=== PATIENT | male | born 1975 | race Caucasian/White ===

== ENCOUNTER 2016-04-09 11:46 | Emergency (ER) | payer OTHER ==
--- NOTE | 2016-04-09 12:08 | ER Document Report ---
ED Medical Screen (RME) - General Stated Complaint: TESTICULAR PAIN Notes: 40 yo male c/o left testicular pain x 2 days. Pain radiates into left groin and left lower abdomen. Mild pain with urination. No fever. No trauma. + swelling to left scrotum per patient.
[2016-04-09] MEDS ORDERED: OXYCODONE-ACETAMINOPHEN 5-325 MG TABLET PO ONE (12:10)
--- NOTE | 2016-04-09 12:14 | ER Document Report ---
[id number] PAIN Notes: The patient is a 40-year-old male, past medical history COPD, kidney stones, presents with 45 minutes of left testicular pain. He is having intermittent pain yesterday that resolved after a shower earlier today. He began to have severe left testicular pain that would radiate into his groin region. His pain is different than his prior kidney stone pain. He denies dysuria, fevers, flank pain, nausea, vomiting, penile discharge or rash. TRAVEL OUTSIDE OF THE [place] IN LAST 30 DAYS: No - Related Data Allergies/Adverse Reactions: No Known Allergies Allergy (Verified 04/09/16 12:04) Past Medical History - General Information source: Patient - Social History Smoking Status: Current Every Day Smoker Chew tobacco use (# tins/day): No Frequency of alcohol use: None Drug Abuse: None Family History: Reviewed & Not Pertinent Patient has suicidal ideation: No Patient has homicidal ideation: No Review of Systems - Review of Systems Notes: REVIEW OF SYSTEMS: CONSTITUTIONAL: -fevers, -chills EENT: -eye pain, -difficulty swallowing, -nasal congestion CARDIOVASCULAR:-chest pain, -syncope. RESPIRATORY: -cough, -SOB GASTROINTESTINAL: -abdominal pain, - nausea, -vomiting, -diarrhea GENITOURINARY: -dysuria, -hematuria, +testicular pain MUSCULOSKELETAL: -back pain, -neck pain SKIN: -rash or skin lesions. HEMATOLOGIC: -easy bruising or bleeding. LYMPHATIC: -swollen, enlarged glands. NEUROLOGICAL: -altered mental status or loss of consciousness, -headache, - neurologic symptoms PSYCHIATRIC: -anxiety, -depression. ALL OTHER SYSTEMS REVIEWED AND NEGATIVE. Physical Exam - Vital signs Vitals: Temp Pulse Resp BP Pulse Ox 98.6 F 91 24 H 170/110 H 96 04/09/16 12:04 04/09/16 12:04 04/09/16 12:04 04/09/16 12:04 04/09/16 12:04 - Notes Notes: PHYSICAL EXAMINATION: GENERAL: In moderate distress. HEAD: Atraumatic, normocephalic. EYES: Pupils equal round and reactive to light, extraocular movements intact, sclera anicteric, conjunctiva are normal. ENT: nares patent, oropharynx clear without exudates. Moist mucous membranes. NECK: Normal range of motion, supple without lymphadenopathy LUNGS: Breath sounds clear to auscultation bilaterally and equal. No wheezes rales or rhonchi. HEART: Regular rate and rhythm without murmurs ABDOMEN: Soft, nontender, normoactive bowel sounds. No guarding, no rebound. No masses appreciated. Left testicular tenderness. Normal testicular lie. No hernia. EXTREMITIES: Normal range of motion, no pitting or edema. No cyanosis. NEUROLOGICAL: Cranial nerves grossly intact. Normal speech, normal gait. Normal sensory, motor, and reflex exams. PSYCH: Normal mood, normal affect. SKIN: Warm, Dry, normal turgor, no rashes or lesions noted. Course - Re-evaluation Re-evalutation: High concern for a testicular torsion. Will obtain ultrasound and provide pain control. She sound does not show evidence of testicular torsion or hernia. He is no longer having pain. With a small amount of blood in the urine and radiation of this pain into his left flank, will treat him presumptively for kidney stones. He has never required any type of surgical intervention for stones. Will hold off on CT and ultrasound at this time and have him follow-up with his urologist. Given strict return precautions and patient and are comfortable with plan. - Vital Signs Vital signs: Temp Pulse Resp BP Pulse Ox 98.6 F 82 17 142/102 H 98 04/09/16 12:04 04/09/16 15:22 04/09/16 15:22 04/09/16 15:22 04/09/16 15:22 - Laboratory Laboratory results interpreted by me: 04/09/16 13:15 Urine Blood SMALL H - Diagnostic Test Radiology reviewed: Image reviewed, Reports reviewed Radiology results interpreted by me: US: No evidence of torsion or hernia. Discharge - Discharge Clinical Impression: Left groin pain Condition: Good Disposition: HOME, SELF-CARE Additional Instructions: KIDNEY STONE: You are passing or have passed a kidney stone. These stones are usually due to increased calcium or uric acid concentrations in your urine. Stones within the kidney itself are not painful. The pain occurs as the stone leaves the kidney to pass down the long tube, called the ureter, leading to the bladder. If the stone is small, it will usually pass by itself. Most patients can pass the stone at home. You will usually receive medications for pain, nausea or vomiting, and sometimes a medication to assist in passing the kidney stone. However, if the pain is very severe or if vomiting prevents you from taking oral pain medications, you may need to return for further treatment. Drink three or four quarts of fluids per day. You will be given pain medication (if needed) and urine strainers. Strain all your urine to see if the stone passes. If your doctor has asked you to bring the stone in for analysis, return with the stone once it has passed. Return if pain or vomiting become severe, if you develop a high fever, if you are unable to pass your urine, or if other unusual symptoms occur. ORAL NARCOTIC MEDICATION: You have been given a prescription for pain control. This medication is a narcotic. It's best taken with food, as nausea can result if taken on an empty stomach. Don't operate machinery or drive within six hours of taking this medication. Do not combine this medicine with alcohol, or with any medication which can cause sedation (such as cold tablets or sleeping pills) unless you get permission from the physician. Narcotics tend to cause constipation. If possible, drink plenty of fluids and eat a diet high in fiber and fruits. Please be aware that prescription narcotics also have the potential for abuse. People become addicted to these medications because of the general sense of wellbeing that they induce. This feeling along with a significant reduction in tension, anxiety, and aggression provides a stimulating seductive quality to these drugs. Once your pain is under control, we encourage you to discard your unused narcotics. FOLLOW-UP CARE: If you have been referred to a physician for follow-up care, call the physician s office for an appointment as you were instructed or within the next two days. If you experience worsening or a significant change in your symptoms, notify the physician immediately or return to the Emergency Department at any time for re-evaluation. Prescriptions: Oxycodone HCl/Acetaminophen [Percocet 5-325 mg Tablet] 1 - 2 tab PO Q4H PRN #15 tablet PRN Reason: Referrals: MANUELITO BEDOYA MD [Primary Care Provider] - Follow up as needed FLACA GILBERT MD [ACTIVE STAFF] - Follow up as needed
[2016-04-09 14:02] LABS: APPEARANCE,URINE CLEAR; BILIRUBIN,URINE NEGATIVE (NEGATIVE); GLUCOSE, URINE NEGATIVE (NEGATIVE); KETONES,URINE NEGATIVE (NEGATIVE); LEUKOCYTE ESTERASE,URINE NEGATIVE (NEGATIVE); NITRITE,URINE NEGATIVE (NEGATIVE); PROTEIN,URINE NEGATIVE (NEGATIVE); URINE SPECIFIC GRAVITY 1.016; UROBILINOGEN,URINE NEGATIVE mg/dL (<2.0)
[2016-04-09 15:24] VITALS: BP 142/102
== END 2016-04-09 15:22 | disposition home or self-care (01) ==
LOC: ER 11:46
DX: R10.30 Lower abdominal pain, unspecified (principal); N50.812 Left testicular pain; Z87.442 Personal history of urinary calculi; F17.200 Nicotine dependence, unspecified, uncomplicated; R31.9 Hematuria, unspecified
CPT/HCPCS: 76870; 81001; 93976; 99284

== ENCOUNTER 2016-09-25 15:09 | Inpatient (IN) | payer OTHER ==
[2016-09-25] MEDS ORDERED: ASPIRIN 81 MG TABLET, CHEWABLE PO ONE (15:12)
[2016-09-25] MEDS ORDERED: ONDANSETRON HCL INJ/PF 4 MG/2 ML SDV IV ONE ×2 (15:35→17:50)
[2016-09-25 15:36] LABS: ABSOLUTE EOSINOPHILS # (AUTO) 0.5 10^3/uL (0.0-0.6); ABSOLUTE LYMPHOCYTES (AUTO) 5.7 10^3/uL (0.5-4.7); ABSOLUTE MONOCYTES (AUTO) 1.2 10^3/uL (0.1-1.4); ABSOLUTE NEUT (AUTO) 12.1 10^3/uL (1.7-8.2); BASOPHILS % (AUTO) 0.2 % (0-2); EOSINOPHILS % (AUTO) 2.4 % (0-6); HEMATOCRIT 47.9 % (37.9-51.0); HEMOGLOBIN 16.2 g/dL (13.5-17.0); HGB HCT DIFFERENCE 0.7; LYMPHOCYTES % (AUTO) 29.1 % (13-45); MEAN CORPUSCULAR HEMOGLOBIN 29.9 pg (27.0-33.4); MEAN CORPUSCULAR HGB CONC 33.9 g/dL (32.0-36.0); MEAN CORPUSCULAR VOLUME 88 fl (80-97); MONOCYTES % (AUTO) 6.2 % (3-13); RED BLOOD COUNT 5.43 10^6/uL (4.35-5.55); RED CELL DISTRIBUTION WIDTH 15.5 % (11.5-14.0); SEGMENTED NEUTROPHILS % (AUTO) 62.1 % (42-78); WHITE BLOOD COUNT 19.5 10^3/uL (4.0-10.5)
[2016-09-25 15:52] LABS: ALANINE AMINOTRANSFERASE 34 U/L (21-72); ALBUMIN 4.6 g/dL (3.5-5.0); ALKALINE PHOSPHATASE 80 U/L (38-126); ANION GAP 17 (5-19); ASPARTATE AMINO TRANSFERASE 18 U/L (17-59); BILIRUBIN,DIRECT 0.3 mg/dL (0.0-0.4); BILIRUBIN,TOTAL 0.7 mg/dL (0.2-1.3); BLOOD UREA NITROGEN 10 mg/dL (7-20); CALCIUM 9.9 mg/dL (8.4-10.2); CARBON DIOXIDE 22 mmol/L (22-30); CHLORIDE 102 mmol/L (98-107); CREATINE KINASE 119 U/L (55-170); CREATININE RESULT 0.89 mg/dL (0.52-1.25); GLUCOSE 119 mg/dL (75-110); POTASSIUM 3.4 mmol/L (3.6-5.0); SODIUM 140.5 mmol/L (137-145); TOTAL PROTEIN 8.1 g/dL (6.3-8.2)
[2016-09-25 16:02] LABS: CREATINE KINASE MB 0.83 ng/mL (<4.55)
--- NOTE | 2016-09-25 16:03 | ER Document Report ---
ED General - General Chief Complaint: Chest Pressure Stated Complaint: CHEST PAIN Time Seen by Provider: 09/25/16 15:24 Notes: Patient said he began feeling ill yesterday morning and he experienced lightheadedness and dizziness. He also had some cramping and tightness in his chest. Also had some headache last night. 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 About 1:30 PM, he began to have profuse sweating, became nauseated and began vomiting and continued to have those symptoms on the way here. He was experiencing severe spinning and vomiting and headache. He has also continued to have the chest tightness off and on. Denies shortness of breath or difficulty breathing. Has not been sick recently. No fevers. Denies abdominal pains. At this time, patient still has severe dizziness and spinning sensation and it is worsened whenever he opens his eyes. Patient has been going to the [place] [facility] and was noted to have a conduction problem and his heart tenderness had a stress test followed by wearing a Holter monitor. His EKG here today has a right bundle branch block and that is probably what they have been working up at the [place]. Patient has no history of any heart disease. He does have hypertension, diet-controlled diabetes, and reactive airway disease. TRAVEL OUTSIDE OF THE [place] IN LAST 30 DAYS: No - Related Data Allergies/Adverse Reactions: No Known Allergies Allergy (Verified 09/25/16 15:42) Past Medical History - Social History Smoking Status: Current Every Day Smoker Frequency of alcohol use: None Drug Abuse: None Family History: Reviewed & Not Pertinent - Past Medical History Cardiac Medical History: Reports: Hx Hypertension Pulmonary Medical History: Reports: Hx COPD Neurological Medical History: Denies: Hx Cerebrovascular Accident Endocrine Medical History: Reports: Hx Diabetes Mellitus Type 2 - Diet controlled GI Medical History: Reports: Hx Hiatal Hernia Past Surgical History: Reports: Hx Abdominal Surgery - hernia, Hx Cholecystectomy - Immunizations Hx Diphtheria, Pertussis, Tetanus Vaccination: Yes Review of Systems - Review of Systems Notes: REVIEW OF SYSTEMS: CONSTITUTIONAL : Denies fever. Profuse continuous heavy sweating. EENT: Denies ear, nose or mouth or throat pain or other symptoms. Complains that when he opens his eyes, it exacerbates the spinning sensation. CARDIOVASCULAR: See HPI regarding chest tightness and cramping RESPIRATORY: Denies cough, chest congestion, or shortness of breath. GASTROINTESTINAL: Denies abdominal pain but has had nausea, vomiting, not diarrhea. GENITOURINARY: Denies difficulty or painful urinating, urinary frequency, blood in urine. MUSCULOSKELETAL: Denies back or neck pain. Denies joint pain or swelling. SKIN: Denies rash or skin lesions. NEUROLOGICAL: Denies LOC, although he says he may have been out for a couple of seconds. Denies altered mental status. Has a generalized, global headache. Denies sensory loss or motor deficits. ALL OTHER SYSTEMS REVIEWED AND NEGATIVE. Physical Exam - Vital signs Vitals: Pulse Ox 99 09/25/16 15:25 Interpretation: Normal - Notes Notes: PHYSICAL EXAMINATION: GENERAL: Anxious, breathing heavily, profusely diaphoretic, especially of his head. HEAD: Atraumatic, normocephalic. EYES: Pupils equal round and reactive to light, extraocular movements intact, although I get the sense that I may be seeing a slight amount of nystagmus with gaze to the right. ENT: oropharynx clear without exudates. Moist mucous membranes. NECK: Normal range of motion, supple. No carotid bruits heard. LUNGS: Breath sounds clear and equal bilaterally. HEART: Regular rate and rhythm without murmurs. ABDOMEN: Soft, nontender. No guarding or rebound. BACK: No tenderness throughout entire back. EXTREMITIES: Normal range of motion without pain. NEUROLOGICAL: Normal speech, gait not tested. Normal sensory, motor, and reflex exams. Awake, alert, and oriented x3. PSYCH: Normal mood, normal affect. SKIN: Warm, dry, no rashes. Course - Re-evaluation Re-evalutation: 09/25/16 17:52 Patient still complaining of pretty severe nausea, although he is no longer vomiting and is not diaphoretic at this time. Spoke with hospitalist, Dr. Maddox, and patient will be admitted to telemetry for observation. - Vital Signs Vital signs: Temp Pulse Resp BP Pulse Ox 98.0 F 18 112/55 L 97 09/25/16 15:32 09/25/16 17:01 09/25/16 17:00 09/25/16 17:01 - Laboratory Result Diagrams: 09/25/16 15:23 09/25/16 15:23 Laboratory results interpreted by me: 09/25/16 09/25/16 15:23 15:23 WBC 19.5 H RDW 15.5 H Absolute Neutrophils 12.1 H Absolute Lymphocytes 5.7 H Potassium 3.4 L Glucose 119 H 09/25/16 17:52 WBC of 19,500 noted. Patient says that he has long been known to have an elevated white cell count, usually between 12,000 and 16,000. - Diagnostic Test Radiology reviewed: Image reviewed, Reports reviewed - CT scan of the brain was normal per radiology Radiology results interpreted by me: 09/25/16 17:51 Chest x-ray is normal. - EKG Interpretation by Me EKG shows normal: Sinus rhythm Rate: Normal Rhythm: NSR [place]/QRS: RBBB, LAHB/LAFB Discharge - Discharge Clinical Impression: Acute onset of severe vertigo Vomiting Qualifiers: Vomiting type: unspecified Vomiting Intractability: non-intractable Nausea presence: with nausea Qualified Code(s): R11.2 - Nausea with vomiting, unspecified Admitting Provider: Hospitalist Unit Admitted: Telemetry Referrals: REENA MADERA MD [Primary Care Provider] - Follow up as needed
[2016-09-25 16:05] LABS: TROPONIN I < 0.012 ng/mL
--- NOTE | 2016-09-25 16:16 | RADIOLOGY REPORT (SQ) ---
EXAM DESCRIPTION: CHEST SINGLE VIEW COMPLETED DATE/TIME: 09/25/2016 3:39 pm REASON FOR STUDY: bed 9 cp COMPARISON: None. EXAM PARAMETERS: NUMBER OF VIEWS: One view. TECHNIQUE: Single frontal radiographic view of the chest acquired. RADIATION DOSE: NA LIMITATIONS: None. FINDINGS: LUNGS AND PLEURA: No opacities, masses or pneumothorax. No pleural effusion. MEDIASTINUM AND HILAR STRUCTURES: No masses. Contour normal. HEART AND VASCULAR STRUCTURES: Heart normal in size. Normal vasculature. BONES: No acute findings. HARDWARE: None in the chest. OTHER: No other significant finding. IMPRESSION: NO ACUTE RADIOGRAPHIC FINDING IN THE CHEST. TECHNICAL DOCUMENTATION: JOB ID: [id number]
--- NOTE | 2016-09-25 16:40 | RADIOLOGY REPORT (SQ) ---
EXAM DESCRIPTION: CT HEAD WITHOUT COMPLETED DATE/TIME: 09/25/2016 4:22 pm REASON FOR STUDY: Extreme dizziness, headache, diaphoresis COMPARISON: None. TECHNIQUE: Axial images acquired through the brain without intravenous contrast. Images reviewed wi th bone, brain and subdural windows. Images stored on PACS. All CT scanners at this facility use dose modulation, iterative reconstruction, and/or weight based d osing when appropriate to reduce radiation dose to as low as reasonably achievable (ALARA). [facility]: Dose Right [facility]: CareDose [facility]: Dose Right [facility]: Teradose 4D [facility]: Smart Voxel ([employer]) RADIATION DOSE: Up-to-date CT equipment and radiation dose reduction techniques were employed. CTDIv ol: 64.6 mGy. DLP: 1163 mGy-cm. mGy. LIMITATIONS: None. FINDINGS: VENTRICLES: Normal size and contour. CEREBRUM: No masses. No hemorrhage. No midline shift. Normal oquendo/white matter differentiation. N o evidence for acute infarction. CEREBELLUM: No masses. No hemorrhage. No alteration of density. No evidence for acute infarction. EXTRAAXIAL SPACES: No fluid collections. No masses. ORBITS AND GLOBE: No intra- or extraconal masses. Normal contour of globe without masses. CALVARIUM: No fracture. PARANASAL SINUSES: Right maxillary sinus mucus or serous retention cyst. Paranasal sinuses, mastoid air cells, middle ear cavities are otherwise unremarkable. SOFT TISSUES: No mass or hematoma. OTHER: No other significant finding. IMPRESSION: NORMAL BRAIN CT WITHOUT CONTRAST. TECHNICAL DOCUMENTATION: JOB ID: [id number] Quality ID # [id number]: Final reports with documentation of one or more dose reduction techniques (e.g., Au tomated exposure control, adjustment of the mA and/or kV according to patient size, use of iterative reconstruction technique) 2010 [employer]- All Rights Reserved
--- NOTE | 2016-09-25 18:46 | EKG REPORT ---
SEVERITY:- ABNORMAL ECG - SINUS RHYTHM RBBB AND LAFB : Confirmed by: Perry Onofre 25-Sep-2016 18:44:39
[2016-09-25 18:47] LABS: APPEARANCE,URINE CLOUDY; BILIRUBIN,URINE NEGATIVE (NEGATIVE); GLUCOSE, URINE NEGATIVE (NEGATIVE); KETONES,URINE NEGATIVE (NEGATIVE); PROTEIN,URINE NEGATIVE (NEGATIVE); URINE BARBITURATES SCREEN NEGATIVE; URINE METHADONE SCREEN NEGATIVE; URINE OPIATES LOW NEGATIVE; URINE PHENCYCLIDINE SCREEN NEGATIVE; URINE SPECIFIC GRAVITY 1.014; UROBILINOGEN,URINE NEGATIVE mg/dL (<2.0)
[2016-09-25 18:48] LABS: AMORPHOUS SEDIMENT,URINE TRACE /HPF; LEUKOCYTE ESTERASE,URINE NEGATIVE (NEGATIVE); NITRITE,URINE NEGATIVE (NEGATIVE)
--- NOTE | 2016-09-25 19:10 | RADIOLOGY REPORT (SQ) ---
EXAM DESCRIPTION: CTA NECK COMPLETED DATE/TIME: 09/25/2016 6:58 pm REASON FOR STUDY: Acute vertigo, Headache COMPARISON: None. TECHNIQUE: Axial dynamic scanning technique with dynamic contrast enhancement through the extra-aircraft inspector nial carotid and vertebral arteries. Multiplanar reconstruction. 3-D MIPS and Volume-rendered imag es acquired at the workstation and saved to PACS. Images are reviewed in soft tissue, bone, lung w indows. All CT scanners at this facility use dose modulation, iterative reconstruction, and/or weight based d osing when appropriate to reduce radiation dose to as low as reasonably achievable (ALARA). [facility]: Dose Right [facility]: CareDose [facility]: Dose Right [facility]: Teradose 4D [facility]: Rowl CONTRAST TYPE AND DOSE: 70 mL Isovue 370- low osmolar. RENAL FUNCTION: BUN 10 creatinine 0.89. LIMITATIONS: None. FINDINGS: AORTIC ARCH: Normal three-vessel origin. Bilateral subclavian arteries are patent. No d issection. RIGHT CAROTIDS: Patent common, internal and external carotid arteries without suggestion of significa nt stenosis or irregular plaque. No dissection. RIGHT VERTEBRAL: Patent. No dissection. LEFT CAROTIDS: Patent common, internal and external carotid arteries without suggestion of significan t stenosis or irregular plaque. No dissection. LEFT VERTEBRAL: Patent. No dissection. OTHER: 1 cm nodule in the right parotid gland. OTHER: 3-D reconstructions confirm findings. IMPRESSION: 1. NORMAL CTA OF THE EXTRA-CRANIAL CAROTID AND VERTEBRAL ARTERIES. 2. 1 CM NODULE IN THE RIGHT PAROTID GLAND. THIS MAY BE A LYMPH NODE OR A PAROTID GLAND ADENOMA. COMMENT: Quality ID #[id number]: Measurements of distal internal carotid diameter were used as the denomina tor for stenosis measurement. TECHNICAL DOCUMENTATION: JOB ID: [id number] Quality ID # [id number]: Final reports with documentation of one or more dose reduction techniques (e.g., Au tomated exposure control, adjustment of the mA and/or kV according to patient size, use of iterative reconstruction technique) 2010 [employer]- All Rights Reserved
[2016-09-25] MEDS ORDERED: (PENDING PHARMACY ID) (Albuterol Sulfate [Proair Respiclick] 2 PUFF) IH PRN (19:48)
--- NOTE | 2016-09-25 19:48 | HISTORY AND PHYSICAL E ---
History and Physical NAME: RACHEL LOTT : 1975 AGE: 41Y ADMITTED: 09/25/2016 ROOM: ED09 PRIMARY CARE PROVIDER: AUGUSTO. CODE STATUS: FULL CODE. CHIEF COMPLAINT: Vertigo and vomiting. HISTORY OF PRESENT ILLNESS: The patient is a 41-year-old male with a past medical history of hypertension and chronic leukocytosis with a white count around 15,000. The patient presented to the emergency department with a chief complaint of vertigo and subsequent vomiting. According to the patient, abruptly at 1 o'clock this afternoon, he was in an air conditioned room when he became diaphoretic, extremely weak and felt like he was spinning, then felt like the room was spinning as well. The patient states that he proceeded to vomit and the symptoms did persist. The patient developed a headache as well and felt so overwhelmed he came to the emergency department for evaluation. According to the patient, he has had some fullness in his left ear and a "rattling" sensation in his right ear as well. The patient does admit to some reactive airway disease and states that he is always taking an antihistamine and has had no symptoms of this. However, the patient does admit to intermittent jaw pain and dull ache of his face. Upon presentation to the emergency department the patient was found to have a white count of 19.5 which is elevated according to the patient, potassium of 3.4, a plain CT of the head was unremarkable, EKG revealed a right bundle branch block, and the patient was referred to the hospitalist for admission and management. PAST MEDICAL HISTORY: Remarkable for: 1. Reactive airway disease. 2. Hypertension. 3. Obesity. 4. Tobacco dependency. 5. A remote history of alcoholism. The patient has been sober for 6 years. 6. A remote history of heavy drug use. The patient has been sober for 15 years. PAST SURGICAL HISTORY: Includes: 1. Ventral wall hernia repair. 2. Cholecystectomy. ALLERGIES: No known drug allergies. HOME MEDICATIONS: Include: 1. Symbicort 2 puffs inhalation q.12 h. 2. Albuterol nebulizers q.6 h. p.r.n. 3. Verapamil 180 mg p.o. daily. 4. Singulair 10 mg p.o. q. hour of sleep. 5. Testosterone injections weekly. 6. Viagra 100 mg p.o. p.r.n. SOCIAL HISTORY: The patient currently resides at home with his Nikki, who is also his surrogate decision maker. She can be reached at . The patient is a smoker. He smokes approximately 1/3 pack of cigarettes a day. He has cut down from a previous 4 packs of cigarettes a day. With an estimate, it appears the patient does have approximately a 111-pujz-zibo history in spite of his young age. The patient denies any alcohol use stating that he has not drank in about 5 years. The patient also denies any current illicit drug use, stating that this is in the remote past. FAMILY MEDICAL HISTORY: The patient denies any family history of coronary artery disease or strokes. The patient's siblings are healthy. Both of the patient's parents are healthy. REVIEW OF SYSTEMS: CONSTITUTIONAL: The patient denies any fevers, chills but admits to an episode of significant diaphoresis with weakness and vertigo and dizziness but no change in appetite. INTEGUMENTARY: The patient denies any rash, bruising, itching. HEENT: No nasal drainage, sore throat. Positive for headache. No vision acuity changes but floaters, and no significant hearing loss but sensation of fullness in both ears with a rattling sensation in the right ear. CARDIOVASCULAR SYSTEM: Denies any chest pain. No heart palpitations or edema. RESPIRATORY: Denies any cough, sputum production, or hemoptysis. GASTROINTESTINAL: Denies any diarrhea, abdominal pain, bloating, hematemesis, constipation, melena, or hematochezia. Positive for nausea with vomiting. GENITOURINARY: Denies any hematuria, pyuria, or dysuria. MUSCULOSKELETAL: The patient does have chronic joint pain, specifically in the neck area that is controlled at this time. NEUROLOGICAL: Denies any seizures or tremors. No loss of consciousness. HEMATOLOGICAL: The patient denies any charanjit bleeding, easy bruising. ENDOCRINE: Denies any significant weight changes. PSYCHIATRIC: Denies suicidal/homicidal ideation. Rest of the review of the other organ systems is negative. PHYSICAL EXAMINATION: GENERAL: On examination the patient is a well-developed, well-nourished, very pleasant, 41-year-old male who is awake, alert and oriented to person, place, time, and situation. He is verbal, conversational, does not appear to be in any acute distress. VITAL SIGNS: As follows: Temperature is 98.0, pulse 80, respirations 18, blood pressure 132/78, oxygen saturation 98% on room air. SKIN: Warm and dry. No rash. He is not diaphoretic. HEENT: Pupils equal, round, reactive to light and accommodation. The patient does have a nystagmus on examination. Conjunctiva is pink. Sclera is not icteric. No mouth lesions. Tongue is midline. NECK: Supple. No JVD. No palpable adenopathy or thyromegaly. CARDIOVASCULAR SYSTEM: Heart is regular. There is no murmur or rub. CHEST: Clear, symmetrical, unlabored. ABDOMEN: Obese, Soft, nontender, nondistended. Bowel sounds are present. No palpable organomegaly. BACK: No CVA tenderness or sacral edema. EXTREMITIES: No clubbing, cyanosis, edema, or peripheral signs of embolization. +2 pedal pulses noted bilaterally. PSYCHIATRIC: Appropriate affect. Pleasant mood. DIAGNOSTICS: Lab values are as follows: Hematology obtained on 09/25/2016; WBCs are 19.5, hemoglobin is 16.2, hematocrit 47.9, platelet count is 294,000. Chemistry obtained on 09/25/2016: Sodium is 140, potassium is 3.4, chloride is 102, carbon dioxide 22, BUN 18, creatinine is 0.89, glucose 119, A1c is pending, calcium is 9.9, bilirubin 0.7, AST 18, ALT is 34, alkaline phosphatase 80, CK 119, CK-MB is 0.83, troponin 0.012, troponin 8.1, albumin 4.2. Urinalysis and toxicology are pending. Chest x-ray obtained on 09/25/2016 revealed no acute radiographic finding of the chest. Head CT obtained on 09/25/2016 reveals a normal brain without contrast. EKG obtained on 09/25/2016 reveals right bundle branch block. IMPRESSION AND PLAN: 1. Acute vertigo with vomiting. Given that this is the patient's initial episode of this, I will obtain a CT of the neck for further imaging. On examination it does appear the patient has foreign body of the right ear, but given the patient's acute symptoms, will defer lavage at this time as this may exacerbate such. Therefore will proceed with treatment and possibly lavage in the a.m. This does not appear to be an acute incident as the foreign body does not appear to be moving. 2. Right bundle branch block. According to the patient, [facility] Cardiac enzymes have been unremarkable. The patient has not had any chest pain. Will repeat serial cardiac enzymes and repeat EKG in the a.m. and follow. 3. Hyperglycemia. This appears to be mild. Will obtain A1c. 4. Hypokalemia. This is mild, most likely due to vomiting. Will give the patient a little fluids to replace potassium. 5. Leukocytosis, possibly due to underlying infectious process and concern for possible otitis media given findings on the ear examination with possible sinus etiology. Once again will await CT imaging and follow. Will start the patient on Flonase as well. 6. Hypertension. The patient's blood pressure is in a good range. Will continue home medications once reconciled. 7. DVT prophylaxis. Will start the patient on subcutaneous heparin. DISPOSITION: The patient is a FULL CODE. Pending patient's symptomatology and diagnostic findings, will re-evaluate in the a.m. Will observe the patient in continuous telemetry as the patient's expected length of stay will not pass 2 midnights. Time spent on this admission including assessment, plan, physical examination, patient education, and family meeting is 40 minutes. DICTATING PHYSICIAN: SULEMA HECK NP [id number] PHY#: [id number] ID: [id number] JOB#: [id number] ACCT: [id number] cc:SULEMA HECK NP >
[2016-09-25] MEDS ORDERED: (PENDING PHARMACY ID) (Bupropion Hcl [Wellbutrin Sr 150 Mg Tablet] 1 TAB) PO SCH (22:00)
[2016-09-25] MEDS: FLUTICASONE NASAL SPRAY 50 MCG/SPRY 120 SPRAY/16 GM NASL SCH (22:07)
[2016-09-25] MEDS: VERAPAMIL HCL 180 MG TABLET.SA PO SCH (22:08)
[2016-09-25] MEDS: TOPIRAMATE 25 MG TABLET PO SCH (22:08)
[2016-09-25] MEDS: HEPARIN SOD (PORCINE) 5,000 UNIT/ML 1 ML SYRINGE SUBCUT SCH (22:08)
[2016-09-25] MEDS: AMOXICILLIN TR/POT CLAVULANATE 500-125 MG TAB PO SCH (22:08)
[2016-09-25] MEDS: MONTELUKAST SODIUM 10 MG TABLET PO SCH (22:08)
[2016-09-25] MEDS: GABAPENTIN 300 MG CAPSULE PO SCH (22:09)
[2016-09-25] MEDS: BUPROPION HCL 100 MG TABLET PO SCH (22:09)
[2016-09-25] MEDS: POTASSI CL 20 MEQ/D5-1/2NS 1L 1,000 ML IV PRN (22:10)
[2016-09-26] MEDS: HEPARIN SOD (PORCINE) 5,000 UNIT/ML 1 ML SYRINGE SUBCUT SCH ×3 (05:28→22:27)
[2016-09-26] MEDS: BUPROPION HCL 100 MG TABLET PO SCH ×3 (05:30→22:25)
[2016-09-26] MEDS: AMOXICILLIN TR/POT CLAVULANATE 500-125 MG TAB PO SCH (05:30)
[2016-09-26] MEDS: POTASSI CL 20 MEQ/D5-1/2NS 1L 1,000 ML IV PRN ×2 (05:31→22:27)
[2016-09-26] MEDS: ONDANSETRON HCL INJ/PF 4 MG/2 ML SDV IV PRN ×4 (06:41→19:58)
[2016-09-26 07:29] LABS: HEMATOCRIT 46.4 % (37.9-51.0); HEMOGLOBIN 14.9 g/dL (13.5-17.0); HGB HCT DIFFERENCE -1.7; MEAN CORPUSCULAR HEMOGLOBIN 29.2 pg (27.0-33.4); MEAN CORPUSCULAR HGB CONC 32.1 g/dL (32.0-36.0); MEAN CORPUSCULAR VOLUME 91 fl (80-97); RED CELL DISTRIBUTION WIDTH 15.6 % (11.5-14.0); WHITE BLOOD COUNT 17.4 10^3/uL (4.0-10.5)
--- NOTE | 2016-09-26 07:50 | EKG REPORT ---
SEVERITY:- ABNORMAL ECG - SINUS RHYTHM RBBB AND LAFB : Confirmed by: Perry Onofre 26-Sep-2016 07:49:47
[2016-09-26] MEDS: TOPIRAMATE 25 MG TABLET PO SCH ×2 (09:39→22:25)
[2016-09-26] MEDS: AMPICILLIN SODIUM/SULBACTAM NA 3 GM in NORMAL SALINE 100 ML IV SCH ×3 (09:39→20:06)
[2016-09-26] MEDS: LISINOPRIL 5 MG TABLET PO SCH (09:39)
[2016-09-26] MEDS: HYDROCHLOROTHIAZIDE 25 MG TABLET PO SCH (09:40)
[2016-09-26] MEDS: FLUTICASONE NASAL SPRAY 50 MCG/SPRY 120 SPRAY/16 GM NASL SCH ×2 (09:44→22:26)
[2016-09-26] MEDS: BUDESONIDE/FORMOTEROL 160-4.5 MCG 60 PUFF/6 GM MDI IH SCH (09:45)
[2016-09-26] MEDS ORDERED: GABAPENTIN 300 MG CAPSULE PO ONE (10:00)
[2016-09-26] MEDS: VERAPAMIL HCL 240 MG TABLET.SA PO SCH (10:13)
[2016-09-26] MEDS: KETOROLAC TROMETHAMINE INJ/PF 30 MG/1 ML SDV IV PRN ×3 (10:39→22:26)
[2016-09-26] MEDS: MECLIZINE HCL 25 MG TABLET PO PRN ×2 (15:15→22:25)
--- NOTE | 2016-09-26 15:41 | PROGRESS NOTE E ---
Progress Note NAME: RACHEL LOTT : 1975 AGE: 41Y DATE: 09/26/2016 ROOM: 403 SUBJECTIVE: The patient is was seen earlier today on rounds. He states that he feels some better today. He did have an episode of vertigo overnight, denies any nausea or vomiting. No diarrhea, shortness of breath, chest pain. He does admit to persistent dizziness and an episode of diaphoresis. The patient does not voice any other concerns at this time. REVIEW OF SYSTEMS: The rest of the review of systems is negative. MEDICATIONS: Medications have been reviewed. OBJECTIVE: GENERAL: The patient is a 41-year-old male who is awake, alert, and oriented to person, place, time, and situation. He is verbal and conversational. He does not appear to be in any acute distress. VITAL SIGNS: Temperature is 97.7, pulse 75, respirations 19, blood pressure is 124/80, oxygen saturation is 97% on room air. SKIN: Warm and dry. No rash. He is not diaphoretic. HEENT: Pupils equal, round, and reactive to light and accommodation. Conjunctivae pink. NECK: There is no JVD. CARDIOVASCULAR SYSTEM: Heart is regular. There is no murmur or rub. CHEST: Clear, symmetrical, unlabored. ABDOMEN: Soft, nontender, and nondistended. Bowel sounds are present. No palpable organomegaly. BACK: No CVA tenderness or sacral edema. EXTREMITIES: No clubbing, cyanosis, edema. PSYCHIATRIC: Appropriate affect, pleasant mood. DIAGNOSTIC DATA: Lab values are as follows: Hematology obtained on 09/26/2016: WBC's are 17.4, hemoglobin is 14.9, hematocrit is 46.4, platelet count is 206,000. Chemistries obtained on 09/25/2016: Sodium is 140, potassium is 3.8, chloride is 102, carbon dioxide 22, BUN 10, creatinine is 0.89, glucose is 119, A1c is 5.2. IMPRESSION AND PLAN: 1. ACUTE VERTIGO WITH VOMITING. THE PATIENT DID HAVE A SYMPTOMATIC REOCCURRENCE OF HIS SYMPTOMS. THE PATIENT'S CTA OF THE NECK REVEALED INTACT VERTEBRAL ARTERIAL FLOW. HOWEVER, DID MENTION A 1 CM NODULE OF THE RIGHT PARATHYROID GLAND, WHICH COULD BE CONSISTENT WITH LYMPH NODE OR GLANDULAR ADENOMA. Given the patient's sinus type symptoms, will transition to IV antibiotic coverage. Discussed the case with Radiology and recommendations have been made for an ultrasound of the area. Will proceed with this and follow. 2. RIGHT BUNDLE BRANCH BLOCK. According to the patient, this is not new. He is being followed by the PA for this. He has had a cardiac workup on an outpatient basis. 3. HYPERGLYCEMIA. A1c IS NORMAL. MUST BE A STRESS RESPONSE. 4. HYPOKALEMIA. MILD. MOST LIKELY DUE TO VOMITING. Will repeat chemistry in the a.m. and follow. 5. LEUKOCYTOSIS. MOST LIKELY DUE TO AN UNDERLYING INFECTIOUS PROCESS. FEEL THIS MAY BE EITHER AN OTITIS MEDIA OR SINUSITIS SO FORTH. HE DOES HAVE CHRONIC LEUKOCYTOSIS AND HIS BASELINE WHITE COUNT IS IN THE 15,000 RANGE. 6. HYPERTENSION. BLOOD PRESSURE HAS BEEN IN A GOOD RANGE. Will continue current medications. 7. DVT PROPHYLAXIS. Will continue subcutaneous heparin. DISPOSITION: The patient is a FULL CODE. Pending the patient's symptomatology and diagnostic findings, will reevaluate in the a.m. The patient will be made inpatient telemetry given the patient's need for IV antibiotics and persistent symptoms, his estimated length of stay will surpass 2 midnights. TIME: Time spent on this followup including assessment, plan, physical examination, and patient education was 25 minutes. DICTATING PHYSICIAN: SULEMA HECK NP [id number] PHY#: [id number] ID: [id number] JOB#: [id number] ACCT: [id number] cc: >
[2016-09-26] MEDS: GABAPENTIN 300 MG CAPSULE PO SCH (22:25)
[2016-09-26] MEDS: MONTELUKAST SODIUM 10 MG TABLET PO SCH (22:26)
[2016-09-26] MEDS: VERAPAMIL HCL 180 MG TABLET.SA PO SCH (22:28)
--- NOTE | 2016-09-26 22:36 | RADIOLOGY REPORT (SQ) ---
EXAM DESCRIPTION: U/S THYROID/SFT TISS HD NECK COMPLETED DATE/TIME: 09/26/2016 10:21 pm REASON FOR STUDY: R PARATHYROID, F/U CTA AND ACUTE VERTIGO COMPARISON: None. TECHNIQUE: Dynamic and static oquendo-scale images acquired of the thyroid gland. Selected additional c olor/power Doppler images recorded. All images stored to PACS. LIMITATIONS: None. FINDINGS: RIGHT LOBE: Normal size. Heterogeneous echotexture. No cystic or solid masses. LEFT LOBE: Normal size. Heterogeneous echotexture. No cystic or solid masses. ISTHMUS: Normal size. Homogeneous echotexture. No cystic or solid masses. OTHER: No other significant finding. IMPRESSION: Diffuse heterogeneous echotexture of the thyroid. No focal nodules. TECHNICAL DOCUMENTATION: JOB ID: [id number] [employer]- All Rights Reserved
[2016-09-27] MEDS: AMPICILLIN SODIUM/SULBACTAM NA 3 GM in NORMAL SALINE 100 ML IV SCH ×4 (03:51→20:01)
[2016-09-27 04:35] LABS: HEMATOCRIT 46.2 % (37.9-51.0); HEMOGLOBIN 15.2 g/dL (13.5-17.0); HGB HCT DIFFERENCE -0.6; MEAN CORPUSCULAR HEMOGLOBIN 29.6 pg (27.0-33.4); MEAN CORPUSCULAR HGB CONC 32.8 g/dL (32.0-36.0); MEAN CORPUSCULAR VOLUME 90 fl (80-97); RED BLOOD COUNT 5.12 10^6/uL (4.35-5.55); RED CELL DISTRIBUTION WIDTH 15.7 % (11.5-14.0); WHITE BLOOD COUNT 14.7 10^3/uL (4.0-10.5)
[2016-09-27 04:56] LABS: ANION GAP 12 (5-19); BLOOD UREA NITROGEN 11 mg/dL (7-20); CALCIUM 9.2 mg/dL (8.4-10.2); CARBON DIOXIDE 27 mmol/L (22-30); CHLORIDE 104 mmol/L (98-107); CREATININE RESULT 0.99 mg/dL (0.52-1.25); GLUCOSE 91 mg/dL (75-110); MAGNESIUM 2.1 mg/dL (1.6-2.3); POTASSIUM 4.3 mmol/L (3.6-5.0); SODIUM 143.3 mmol/L (137-145)
[2016-09-27] MEDS: HEPARIN SOD (PORCINE) 5,000 UNIT/ML 1 ML SYRINGE SUBCUT SCH ×3 (05:25→21:07)
[2016-09-27] MEDS: POTASSI CL 20 MEQ/D5-1/2NS 1L 1,000 ML IV PRN (05:26)
[2016-09-27] MEDS: ONDANSETRON HCL INJ/PF 4 MG/2 ML SDV IV PRN ×2 (05:26→21:11)
[2016-09-27] MEDS: KETOROLAC TROMETHAMINE INJ/PF 30 MG/1 ML SDV IV PRN ×3 (05:27→18:21)
[2016-09-27] MEDS: BUPROPION HCL 100 MG TABLET PO SCH ×3 (05:27→21:08)
[2016-09-27] MEDS: MECLIZINE HCL 25 MG TABLET PO PRN ×2 (05:28→14:01)
[2016-09-27] MEDS: GABAPENTIN 300 MG CAPSULE PO SCH ×2 (08:42→21:08)
[2016-09-27] MEDS: VERAPAMIL HCL 240 MG TABLET.SA PO SCH (10:35)
[2016-09-27] MEDS: HYDROCHLOROTHIAZIDE 25 MG TABLET PO SCH (10:36)
[2016-09-27] MEDS: TOPIRAMATE 25 MG TABLET PO SCH ×2 (10:36→21:09)
[2016-09-27] MEDS: LISINOPRIL 5 MG TABLET PO SCH (10:36)
[2016-09-27] MEDS: FLUTICASONE NASAL SPRAY 50 MCG/SPRY 120 SPRAY/16 GM NASL SCH ×2 (10:37→21:13)
[2016-09-27] MEDS: BUDESONIDE/FORMOTEROL 160-4.5 MCG 60 PUFF/6 GM MDI IH SCH (10:37)
[2016-09-27] MEDS ORDERED: NEOMY SULF/POLYMYX B SULF/HC OTIC SUSP 10 ML AD ONE (12:15)
[2016-09-27] MEDS ORDERED: DIAZEPAM 5 MG TABLET PO ONE (12:30)
--- NOTE | 2016-09-27 16:33 | RADIOLOGY REPORT (SQ) ---
EXAM DESCRIPTION: MRI HEAD COMBO COMPLETED DATE/TIME: 09/27/2016 4:09 pm REASON FOR STUDY: Acute vertigo, nystagmus, vision chgs, ?mass COMPARISON: CT brain 09/25/2016 CT angio neck 09/25/2016 TECHNIQUE: Multiplanar imaging includes noncontrasted T1, T2, FLAIR, diffusion with ADC map and post gadolinium contrast T1 sequences. Images stored on PACS. Additional thin section axial T2, thin section axial pre and post contrast T1, thin section coronal p ostcontrast T1 weighted images through the internal auditory canals and inner ear structures were obt ained. CONTRAST TYPE AND DOSE: 20 mL Multihance. RENAL FUNCTION: None required. The patient is less than 50 years old. LIMITATIONS: None. FINDINGS: ANATOMY: No developmental anomalies. Normal vascular flow voids. Pituitary fossa normal. CSF SPACES: Normal in size and contour. No hemorrhage. CEREBRUM: Sulci and gyri normal in size and contour. Normal white matter signal on FLAIR imaging. No evidence of hemorrhage, mass, or extraaxial fluid collection. No abnormal enhancement post contrast. POSTERIOR FOSSA: No signal alteration. No hemorrhage. No edema, masses, or mass effect. Internal auditory canals, cerebellopontine angles, mastoids normal. No abnormal enhancement post con trast. DIFFUSION IMAGING: Negative for acute or subacute infarction. ORBITS: No masses. Globes normal. PARANASAL SINUSES: No fluid levels. Mucosa normal. OTHER: 1 cm nodule in the superficial lobe right parotid gland at the edge of the field of view, on s agittal image 2 and coronal thin-section IAC image 4. Ultrasound of the parotid gland is recommended for followup. IMPRESSION: NORMAL MRI OF THE BRAIN WITHOUT AND WITH INTRAVENOUS GADOLINIUM CONTRAST. TECHNICAL DOCUMENTATION: JOB ID: [id number]- All Rights Reserved
--- NOTE | 2016-09-27 16:53 | PROGRESS NOTE E ---
Progress Note NAME: RACHEL LOTT : 1975 AGE: 41Y DATE: 09/27/2016 ROOM: 403 SUBJECTIVE: The patient was seen earlier today on rounds. The patient has had persistent symptoms throughout the evening and into today. Discussed this with the patient. The patient is also quite concerned about the foreign body in his right ear. Collaborated with Dr. Saucedo and graciously aided in extracting this using an ear eyelet. The patient tolerated the procedure relatively well. The patient did note an increase in his ability to hear but symptoms of vertigo did persist. The patient has been afebrile. Blood pressure has been in a good range. The patient does not voice any other concerns at this time. REVIEW OF SYSTEMS: Rest of the review of systems negative. MEDICATIONS: Have been reviewed. OBJECTIVE: GENERAL: The patient is a 41-year-old male who is awake, alert, and oriented to person, place, time, and situation. He is verbal and conversational. He does not appear to be in any acute distress. VITAL SIGNS: Temperature is 98.3, pulse 77, respirations 20, blood pressure 145/75, oxygen saturation is 98% on room air. SKIN: Warm and dry. No rash. Not diaphoretic. HEENT: Pupils equal, round, reactive to light and accommodation. Conjunctivae are pink. No JVP. CARDIOVASCULAR: Heart is regular with no murmur or rub. CHEST: Clear, symmetrical, unlabored. ABDOMEN: Soft, nontender, nondistended. BACK: No CVA tenderness or sacral edema. EXTREMITIES: No clubbing, cyanosis, or edema. PSYCHIATRIC: Appropriate affect. Pleasant mood. DIAGNOSTICS: Lab values are as follows: Hematology obtained on 09/27/2016: WBCs are 4.7, hemoglobin is 15.2, hematocrit is 46.2, platelet count is 224,000. Chemistry obtained on 09/27/2016: Sodium is 143, potassium 4.3, chloride is 104, carbon dioxide 27, BUN 11, creatinine is 0.99, glucose 91, A1c is 5.2, calcium is 9.2, magnesium is 2.1. IMPRESSION AND PLAN: 1. ACUTE VERTIGO. Do have a high suspicion for viral labyrinthitis. Will obtain MRI for rule out and will follow. 2. RIGHT BUNDLE BRANCH BLOCK. According to the patient, this is old. It has been followed by the [facility]. He has had a cardiac workup on an outpatient basis. 3. HYPERGLYCEMIA. This was a stress response. A1c is normal. 4. HYPOKALEMIA. Most likely was due to vomiting. A repeat chemistry is appropriate. 5. LEUKOCYTOSIS. This has returned to baseline. The patient does have a chronically elevated white count of around 15,000. 6. HYPERTENSION. Blood pressures have been in a good range. Continue current medications. 7. DVT PROPHYLAXIS. Will continue subcutaneous heparin. DISPOSITION: The patient is a FULL CODE. Pending patient's symptomatology and diagnostic findings, will reevaluate in the a.m. Time spent on this followup including assessment, plan, physical examination, patient education, family meeting, and bedside procedure is 45 minutes. DICTATING PHYSICIAN: SULEMA HECK NP [id number] PHY#: [id number] ID: [id number] JOB#: [id number] ACCT: [id number] cc: >
[2016-09-27] MEDS: NEOMY SULF/POLYMYX B SULF/HC OTIC SUSP 10 ML AD SCH ×2 (18:23→21:13)
[2016-09-27] MEDS: MONTELUKAST SODIUM 10 MG TABLET PO SCH (21:09)
[2016-09-27] MEDS: VERAPAMIL HCL 180 MG TABLET.SA PO SCH (21:14)
[2016-09-28] MEDS: AMPICILLIN SODIUM/SULBACTAM NA 3 GM in NORMAL SALINE 100 ML IV SCH ×2 (03:11→08:21)
[2016-09-28] MEDS: HEPARIN SOD (PORCINE) 5,000 UNIT/ML 1 ML SYRINGE SUBCUT SCH (05:09)
[2016-09-28] MEDS: BUPROPION HCL 100 MG TABLET PO SCH (05:10)
[2016-09-28] MEDS: GABAPENTIN 300 MG CAPSULE PO SCH (08:16)
[2016-09-28] MEDS: KETOROLAC TROMETHAMINE INJ/PF 30 MG/1 ML SDV IV PRN (08:16)
[2016-09-28] MEDS: ONDANSETRON HCL INJ/PF 4 MG/2 ML SDV IV PRN (08:17)
[2016-09-28 08:46] VITALS: BP 117/71
[2016-09-28] MEDS: HYDROCHLOROTHIAZIDE 25 MG TABLET PO SCH (09:48)
[2016-09-28] MEDS: BUDESONIDE/FORMOTEROL 160-4.5 MCG 60 PUFF/6 GM MDI IH SCH (09:49)
[2016-09-28] MEDS: VERAPAMIL HCL 240 MG TABLET.SA PO SCH (09:49)
[2016-09-28] MEDS: LISINOPRIL 5 MG TABLET PO SCH (09:49)
[2016-09-28] MEDS: FLUTICASONE NASAL SPRAY 50 MCG/SPRY 120 SPRAY/16 GM NASL SCH (09:50)
[2016-09-28] MEDS: TOPIRAMATE 25 MG TABLET PO SCH (09:50)
[2016-09-28] MEDS: NEOMY SULF/POLYMYX B SULF/HC OTIC SUSP 10 ML AD SCH (09:51)
[2016-09-28] MEDS ORDERED: HYDROMORPHONE HCL INJ/PF 2 MG/ML AMPULE IV ONE (10:18)
[2016-09-28] MEDS ORDERED: DIAZEPAM 5 MG TABLET PO SCH (12:00)
[2016-09-28] MEDS ORDERED: ONDANSETRON 4 MG TAB.RAPDIS PO SCH (12:00)
[2016-09-28] MEDS ORDERED: ONDANSETRON HCL INJ/PF 4 MG/2 ML SDV IV PRN (12:24)
[2016-09-28] MEDS ORDERED: ALBUTEROL SULFATE HFA (90 MCG/PUFF) 200 PUFF/8.5 GM MDI IH PRN (12:28)
--- NOTE | 2016-09-28 16:03 | DISCHARGE SUMMARY E ---
Discharge Summary NAME: RACHEL LOTT : 1975 AGE: 41Y ADMITTED: 09/25/2016 DISCHARGED: 09/28/2016 CODE STATUS: FULL CODE. PRIMARY CARE PROVIDER: [place] DISCHARGE DIAGNOSES: 1. Viral labyrinthitis. 2. SIRS secondary to #1 which is improved. 3. Chronic leukocytosis now at baseline of 15,000. 4. A 1 cm nodule of the right parotid gland versus lymph node. 5. Right bundle branch block which is chronic and old. 6. Hyperglycemia, stress response. A1c was unremarkable. 7. Hypokalemia. This resolved. 8. Hypertension. DISCHARGE MEDICATIONS: 1. Zofran ODT 4 mg 1-2 tablets sublingually q.4 hours p.r.n., 20 tablets, 0 refills. 2. Cortisporin 4 drops in the right ear q.i.d. 3. Antivert 25 mg p.o. t.i.d., 30 tablets, 0 refills. 4. Flonase 2 sprays nasally q.12 hours. 5. Valium 5 mg p.o. q.i.d. p.r.n., 20 tablets, 0 refills. 6. Fioricet 50/325/40 one tablet p.o. q.4 hours p.r.n., 10 tablets, 0 refills. 7. Augmentin 875/125 one tablet p.o. b.i.d., 12 tablets, 0 refills. 8. Verapamil 240 mg p.o. daily. 9. Verapamil 180 mg p.o. at hour of sleep. 10. Topamax 50 mg p.o. q.12 hours. 11. Singulair 10 mg p.o. at hour of sleep. 12. Lisinopril 10 mg p.o. daily. 13. Hydrochlorothiazide 25 mg p.o. daily. 14. Neurontin 600 mg p.o. at hour of sleep. 15. Neurontin 600 mg p.o. every a.m. 16. Wellbutrin SR 115 mg p.o. q.12 hours. 17. Symbicort HFA 160/4.5 two puffs inhalation daily. 18. ProAir 2 puffs inhalation q.4 hours p.r.n. DIET: Heart healthy. ACTIVITY: No driving until followup. HISTORY OF PRESENT ILLNESS: The patient is a 41-year-old male with a past medical history of hypertension. The patient presented to the emergency department with a chief complaint of dizziness with nausea and vomiting. The patient does have a chronic history of leukocytosis and his normal white count is around 15,000; however, the patient presented to the emergency department due to symptoms of vertigo. According to the patient, he had an abrupt onset of symptoms while he was at work when he became diaphoretic, extremely weak, and felt like the room was spinning. When the patient sat down, he felt like he was spinning as well. The patient proceeded to vomit and his symptoms continued to persist. The patient developed a headache as well and felt so overwhelmed he came to the emergency department for evaluation. According to the patient, he had some fullness of his left ear and a rattling sensation in his right ear. The patient does admit to some reactive airway disease and he is always on an antihistamine. Patient did admit to intermittent jaw pain, dull aching in his face. Upon presentation to the emergency department, the patient was found to have a white count of 19.5, potassium 3.4. Plain CT was unremarkable. EKG revealed a right bundle branch block which is nothing new for this patient. The patient was referred to the hospitalist for admission and management. HOSPITAL COURSE: The patient was admitted to continuous telemetry unit. The patient was hydrated and potassium was replaced. The patient's cardiac enzymes were unremarkable. The patient's symptoms were quite persistent. The patient did have a CTA of the neck which showed no issues with the arteries of this area; however, it did note a 1 cm nodule of the right parotid gland suggestive of a lymph node versus parotid gland adenoma. The patient underwent an ultrasound of this area and recommendations were made for further followup. The patient underwent a head MRI and findings were not suggestive of anything acute other than the parotid gland issue. The patient, on ear examination, was noted to have what appeared to be a foreign body in his right ear. This was extracted without issue and was found to be a insect. The patient tolerated that procedure well. The patient's symptoms did improve with meclizine and Valium. The patient was able to keep foods down and is quite ready for discharge. DIAGNOSTICS: Lab values are as follows: Hematology obtained on 09/27/2016: WBCs are 14.7, hemoglobin is 15.2, hematocrit is 46.2, platelet count is 224,000. Chemistry obtained on 09/27/2016: Sodium is 143, potassium 4.3, chloride is 104, carbon dioxide 27, BUN 11, creatinine is 0.99, glucose 91, A1c is 5.2, calcium is 9.2, magnesium is 2.1, bilirubin 0.7, AST 18, ALT of 34, alk phos 80, CK 119, CK-MB is 0.83, troponins 0.012, total protein 8.1, albumin 4.6. Urinalysis obtained on 09/25/2016: Color yellow, appearance cloudy, pH 7.0, specific gravity 1.014, protein negative, glucose negative, ketones negative, occult blood negative, nitrate negative, bilirubin negative, urobilinogen negative, leukocyte esterase negative, WBC 6, RBC 2, bacteria trace, epithelial squamous cells 0, mucous rare, ascorbic acid 4. Toxicology obtained on 09/25/2016 is wilcox negative. Neck CTA obtained on 09/25/2106 reveals a normal CTA of the extracranial carotid and vertebral arteries. A 1 cm nodule of the right parotid gland electroplating sales representative of lymph node or an adenoma. Chest x-ray obtained on 09/25/2016 reveals no acute radiographic finding of the chest. Head CT obtained on 09/25/[address] without contrast. Thyroid ultrasound obtained on 09/25/2016 reveals diffuse heterogenous echotexture of the thyroid but no focal nodules. Head MRI obtained on 09/27/2016 reveals a 1 cm nodule of the superficial lobe of the right parotid gland at the edge of the field of view on imaging to end corneal thin section of image 4. Ultrasound of the parotid gland is recommended for followup. EKG obtained on 09/26/2016 reveals a right bundle branch block. PHYSICAL EXAMINATION: GENERAL: On examination, the patient is a well-developed, well-nourished, 41-year-old male who is awake, alert, and oriented to person, place, and situation. He is verbal, conversational, ambulatory, and does not appear to be in any acute distress. VITAL SIGNS: Temperature 98.5, pulse 81, respirations 16, blood pressure 117/71, oxygen saturation is 96% on room air. SKIN: Warm and dry. No rash. Not diaphoretic. HEENT: Pupils equal, round, reactive to light and accommodation. Conjunctivae are pink. No JVP. CARDIOVASCULAR: Heart is regular with no murmur or rub. CHEST: Clear, symmetrical, unlabored. ABDOMEN: Soft,nontender, nondistended. BACK: No CVA tenderness or sacral edema. EXTREMITIES: No clubbing, cyanosis, or edema. DISCHARGE PLANNING: The patient is advised to followup with a primary care provider within 1 week for hospital followup. The patient is restricted on his driving until this time. The patient also will need repeat thyroid imaging. Time spent on this discharge including assessment, plan, physical examination, patient education, and family meeting is 25 minutes. DICTATING PHYSICIAN: SULEMA HECK NP [id number] PHY#: [id number] ID: [id number] JOB#: [id number] ACCT: [id number] cc:MEGA BETANCUR M.D., MICHAEL NP > MTDD
== END 2016-09-28 13:20 | disposition home or self-care (01) | DRG 149 ==
LOC: ER 15:09 → OBSVTOIN 17:44 → EH 17:44 → UNDOADMOB 17:44 → INTOOBSV 17:44 → EH 18:29 → UNDOADMOB 18:29 → 4N 19:14 → EH 19:14 → 4N 09-27 16:38 → OBSVTOIN 09-27 16:38 → EH 09-27 16:38
PROVIDERS: ADMIT Family Medicine; ATTEND Family Medicine
DX: H83.09 Labyrinthitis, unspecified ear (principal); Z68.41 Body mass index [BMI] 40.0-44.9, adult; I45.10 Unspecified right bundle-branch block; E11.65 Type 2 diabetes mellitus with hyperglycemia; E87.6 Hypokalemia; I10 Essential (primary) hypertension; E66.9 Obesity, unspecified; F10.21 Alcohol dependence, in remission; G89.29 Other chronic pain; K11.8 Other diseases of salivary glands; J44.9 Chronic obstructive pulmonary disease, unspecified; K44.9 Diaphragmatic hernia without obstruction or gangrene; F17.210 Nicotine dependence, cigarettes, uncomplicated; R11.2 Nausea with vomiting, unspecified; Z90.49 Acquired absence of other specified parts of digestive tract; Z79.899 Other long term (current) drug therapy
CPT/HCPCS: 36415; 70450; 70498; 70553; 71010; 76536; 80048; 80053; 80307; 81001; 82550; 82553; 83036; 83735; 84484; 85025; 85027; 93005; 93010; 96374; 96376; 99285; A9577; G0378; J0295; J1170; J1644; J1885; J2405; J3480; J3490; S0119

== ENCOUNTER 2017-04-28 19:32 | Emergency (ER) | payer OTHER ==
[2017-04-28] MEDS ORDERED: ONDANSETRON HCL INJ/PF 4 MG/2 ML SDV IV ONE (20:20)
[2017-04-28] MEDS ORDERED: NORMAL SALINE 1000 ML 1,000 ML IV ONE (20:20)
[2017-04-28] MEDS ORDERED: KETOROLAC TROMETHAMINE INJ/PF 30 MG/1 ML SDV IV ONE (20:20)
--- NOTE | 2017-04-28 20:22 | ER Document Report ---
ED Medical Screen (RME) - General Chief Complaint: Testicular Pain Stated Complaint: SHORTNESS OF BREATH,NAUSEA,BACK PAIN Time Seen by Provider: 04/28/17 20:20 Mode of Arrival: Ambulatory Information source: Patient Notes: 41-year-old male history of kidney stones presents with complaints of left flank pain radiating to the groin. Patient denies any fevers or chills admits to nausea vomiting I have greeted and performed a rapid initial assessment of this patient. A comprehensive ED assessment and evaluation of the patient, analysis of test results and completion of the medical decision making process will be conducted by additional ED providers. PHYSICAL EXAMINATION: GENERAL: Well-appearing, well-nourished and in no acute distress. HEAD: Atraumatic, normocephalic. EYES: Pupils equal round extraocular movements intact, conjunctiva are normal. ENT: Nares patent NECK: Normal range of motion LUNGS: No respiratory distress Musculoskeletal: Normal range of motion, normal cremaster reflex NEUROLOGICAL: Normal speech, normal gait. PSYCH: Normal mood, normal affect. SKIN: Warm, Dry, normal turgor, no rashes or lesions noted. TRAVEL OUTSIDE OF THE [place] IN LAST 30 DAYS: No - Related Data Allergies/Adverse Reactions: No Known Allergies Allergy (Verified 04/28/17 19:34) Past Medical History - Past Medical History Cardiac Medical History: Reports: Hx Hypertension Pulmonary Medical History: Reports: Hx COPD, Hx Pneumonia Neurological Medical History: Denies: Hx Cerebrovascular Accident Endocrine Medical History: Reports: Hx Diabetes Mellitus Type 2 - Diet controlled Renal/ Medical History: Reports: Hx Kidney Stones. Denies: Hx Peritoneal Dialysis GI Medical History: Reports: Hx Hiatal Hernia Past Surgical History: Reports: Hx Abdominal Surgery - hernia, Hx Cholecystectomy - Immunizations Hx Diphtheria, Pertussis, Tetanus Vaccination: Yes Physical Exam - Vital signs Vitals: Temp Pulse Resp BP Pulse Ox 98.9 F 88 20 146/101 H 97 04/28/17 19:49 04/28/17 19:49 04/28/17 19:49 04/28/17 19:49 04/28/17 19:49 Course - Vital Signs Vital signs: Temp Pulse Resp BP Pulse Ox 98.9 F 88 20 146/101 H 97 04/28/17 19:49 04/28/17 19:49 04/28/17 19:49 04/28/17 19:49 04/28/17 19:49
[2017-04-28 20:55] LABS: ABSOLUTE BASOPHILS # (AUTO) 0.1 10^3/uL (0.0-0.2); ABSOLUTE EOSINOPHILS # (AUTO) 0.2 10^3/uL (0.0-0.6); ABSOLUTE LYMPHOCYTES (AUTO) 2.5 10^3/uL (0.5-4.7); ABSOLUTE MONOCYTES (AUTO) 1.4 10^3/uL (0.1-1.4); ABSOLUTE NEUT (AUTO) 8.9 10^3/uL (1.7-8.2); BASOPHILS % (AUTO) 0.9 % (0-2); EOSINOPHILS % (AUTO) 1.2 % (0-6); HEMATOCRIT 48.4 % (37.9-51.0); HEMOGLOBIN 16.2 g/dL (13.5-17.0); MEAN CORPUSCULAR HEMOGLOBIN 29.5 pg (27.0-33.4); MEAN CORPUSCULAR HGB CONC 33.5 g/dL (32.0-36.0); MEAN CORPUSCULAR VOLUME 88 fl (80-97); MONOCYTES % (AUTO) 10.7 % (3-13); PLATELET COUNT 271 10^3/uL (150-450); RED CELL DISTRIBUTION WIDTH 16.1 % (11.5-14.0); SEGMENTED NEUTROPHILS % (AUTO) 68.2 % (42-78); TOTAL CELLS COUNTED % (AUTO) 100 %; WHITE BLOOD COUNT 13.1 10^3/uL (4.0-10.5)
[2017-04-28 21:10] LABS: ALANINE AMINOTRANSFERASE 19 U/L (21-72); ALBUMIN 4.6 g/dL (3.5-5.0); ALKALINE PHOSPHATASE 74 U/L (38-126); ANION GAP 15 (5-19); ASPARTATE AMINO TRANSFERASE 18 U/L (17-59); BILIRUBIN,DIRECT 0.3 mg/dL (0.0-0.4); BILIRUBIN,TOTAL 0.6 mg/dL (0.2-1.3); BLOOD UREA NITROGEN 10 mg/dL (7-20); CALCIUM 9.4 mg/dL (8.4-10.2); CARBON DIOXIDE 25 mmol/L (22-30); CHLORIDE 101 mmol/L (98-107); GLUCOSE 100 mg/dL (75-110); POTASSIUM 4.2 mmol/L (3.6-5.0); SODIUM 140.5 mmol/L (137-145); TOTAL PROTEIN 7.4 g/dL (6.3-8.2)
[2017-04-28] MEDS ORDERED: MORPHINE SULFATE 10 MG/ML INJ IV ONE ×2 (21:19→23:47)
[2017-04-28 21:22] LABS: BILIRUBIN,URINE NEGATIVE (NEGATIVE); COLOR,URINE YELLOW; GLUCOSE, URINE NEGATIVE (NEGATIVE); KETONES,URINE NEGATIVE (NEGATIVE); LEUKOCYTE ESTERASE,URINE NEGATIVE (NEGATIVE); NITRITE,URINE NEGATIVE (NEGATIVE); PROTEIN,URINE NEGATIVE (NEGATIVE); URINE SPECIFIC GRAVITY 1.003; UROBILINOGEN,URINE NEGATIVE mg/dL (<2.0)
[2017-04-28 21:23] LABS: APPEARANCE,URINE CLEAR
--- NOTE | 2017-04-28 21:26 | RADIOLOGY REPORT (SQ) ---
EXAM DESCRIPTION: CT LTD RENAL STONE PROTOCOL ON COMPLETED DATE/TIME: 04/28/2017 9:03 pm REASON FOR STUDY: flank pain COMPARISON: None. TECHNIQUE: CT scan of the abdomen and pelvis performed without intravenous or oral contrast. Images reviewed with lung, soft tissue, and bone windows. Reconstructed coronal and sagittal MPR images revi ewed. All images stored on PACS. All CT scanners at this facility use dose modulation, iterative reconstruction, and/or weight based d osing when appropriate to reduce radiation dose to as low as reasonably achievable (ALARA). [facility]: Dose Right [facility]: CareDose [facility]: Dose Right [facility]: Teradose 4D [facility]: Smart built.io RADIATION DOSE: CT Rad equipment meets quality standard of care and radiation dose reduction techniq ues were employed. CTDIvol: 19.2 mGy. DLP: 1070 mGy-cm.mGy. LIMITATIONS: None. FINDINGS: LOWER CHEST: No significant findings. No nodules or infiltrates. NON-CONTRASTED LIVER, SPLEEN, ADRENALS: Evaluation limited by lack of IV contrast. No identified sign ificant masses. PANCREAS: No masses. No peripancreatic inflammatory changes. GALLBLADDER: Surgically absent. RIGHT KIDNEY AND URETER: No suspicious masses. Assessment limited by lack of IV contrast. Nonobstru cting it nephroliths are not demonstrated, the largest measuring up to 9.0 mm. No hydronephrosis or hydroureter. LEFT KIDNEY AND URETER: No suspicious masses. Assessment limited by lack of IV contrast. Punctate n onobstructing nephroliths are present. Mild hydronephrosis and hydroureter are seen, based upon the presence of a 3.9 x 3.1 x 6.2 mm distal ureterolith, just proximal to the ureterovesicular junction. AORTA AND RETROPERITONEUM: No aneurysm. No retroperitoneal masses or adenopathy. BOWEL AND PERITONEAL CAVITY: No obvious masses or inflammatory changes. No free fluid. APPENDIX: Normal. PELVIS, BLADDER, AND ABDOMINAL WALL:No abnormal masses. No free fluid. Bladder normal. BONES: No significant findings. OTHER: No other significant finding. IMPRESSION: Mild left-sided hydronephrosis and hydroureter on the basis of a 3.9 x 3.1 x 6.2 mm dist al ureterolith. COMMENT: Quality ID # [id number]: Final reports with documentation of one or more dose reduction techniques (e.g., Automated exposure control, adjustment of the mA and/or kV according to patient size, use of iterative reconstruction technique) TECHNICAL DOCUMENTATION: JOB ID: [id number] [employer]- All Rights Reserved
--- NOTE | 2017-04-28 21:33 | ER Document Report ---
ED GI/ - General Chief Complaint: Testicular Pain Stated Complaint: SHORTNESS OF BREATH,NAUSEA,BACK PAIN Time Seen by Provider: 04/28/17 20:20 Mode of Arrival: Ambulatory Information source: Patient Notes: Patient presents complaining of left flank pain that radiates into the left groin and testicle that started today. Patient reports nausea and vomiting 2 episodes today. Patient does report some difficulty voiding and hematuria. Patient has a history kidney stones and suspects the same today. TRAVEL OUTSIDE OF THE [place] IN LAST 30 DAYS: No - HPI Patient complains to provider of: Abdominal pain, Flank pain, Testicular pain Onset: This afternoon Timing/Duration: Gradual Quality of pain: Sharp Pain Level: 4 Location: LLQ, Left flank Sexual history: Active Associated symptoms: Nausea, Vomiting. 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 Denies: Hx Peritoneal Dialysis GI Medical History: Reports: Hx Hiatal Hernia Past Surgical History: Reports: Hx Abdominal Surgery - hernia, Hx Cholecystectomy - Immunizations Hx Diphtheria, Pertussis, Tetanus Vaccination: Yes Review of Systems - Review of Systems Constitutional: Recent illness - Recent vomiting and diarrhea illness that multiple family members had EENT: No symptoms reported Cardiovascular: No symptoms reported. denies: Chest pain Respiratory: No symptoms reported. denies: Cough, Short of breath Gastrointestinal: Abdominal pain, Nausea, Vomiting. denies: Diarrhea Genitourinary: Flank pain, Hematuria, Other - Hesitancy. denies: Dysuria Male Genitourinary: No symptoms reported Musculoskeletal: Back pain Skin: No symptoms reported Hematologic/Lymphatic: No symptoms reported Neurological/Psychological: No symptoms reported Physical Exam - Vital signs Vitals: Temp Pulse Resp BP Pulse Ox 98.9 F 88 20 146/101 H 97 04/28/17 19:49 04/28/17 19:49 04/28/17 19:49 04/28/17 19:49 04/28/17 19:49 - General General appearance: Appears well, Alert In distress: None - HEENT Head: Normocephalic, Atraumatic Eyes: Normal Conjunctiva: Normal Nasal: Normal Mouth/Lips: Normal Mucous membranes: Normal Neck: Normal, Supple. No: Lymphadenopathy - Respiratory Respiratory status: No respiratory distress Chest status: Nontender Breath sounds: Normal. No: Rales, Rhonchi, Stridor, Wheezing Chest palpation: Normal - Cardiovascular Rhythm: Regular Heart sounds: S1 appreciated, S2 appreciated - Abdominal Inspection: Morbidly Obese Distension: No distension Bowel sounds: Normal Tenderness: Tender - L middle quad tenderness Organomegaly: No organomegaly - Genitourinary Inspection: Normal Tenderness: Testicle tender - left Scrotum: No: Swelling, Redness Notes: RN Reza as standby - Back Back: CVA tenderness - left - Extremities General upper extremity: Normal inspection, Nontender, Normal strength General lower extremity: Normal inspection, Nontender, Normal strength - Neurological Neuro grossly intact: Yes Cognition: Normal Krish Coma Scale Eye Opening: Spontaneous [place] Coma Scale Verbal: Oriented Krish Coma Scale Motor: Obeys Commands Krish Coma Scale Total: 15 - Psychological Associated symptoms: Normal affect, Normal mood - Skin Skin Temperature: Warm Skin Moisture: Dry Skin Color: Normal Course - Re-evaluation Re-evalutation: 04/28/17 23:30 Patient with mild hydronephrosis with a distal ureteral stone. Patient with normal renal function. Consulted with Dr. Man regarding patient presentation. Reviewed patient's CT scan and diagnostics. Patient with ureteral stone which measures over 6 mm. 04/28/17 23:39 Patient states that he does not have any concerns about getting timely follow- up. Patient plans to touch base with his doctor Sunday morning. Offered to make appointment for patient, patient states that he feels that he can get timely follow-up in the next 3-5 days. Patient advised that if he has any difficulty getting timely follow-up with urology that he can return here. - Vital Signs Vital signs: Temp Pulse Resp BP Pulse Ox 98.8 F 79 16 132/70 H 96 04/29/17 00:10 04/29/17 00:10 04/29/17 00:10 04/29/17 00:10 04/29/17 00:10 - Laboratory Result Diagrams: 04/28/17 20:44 04/28/17 20:44 Laboratory results interpreted by me: 04/28/17 04/28/17 04/28/17 20:35 20:44 20:44 WBC 13.1 H RDW 16.1 H Absolute Neutrophils 8.9 H ALT 19 L Urine Blood LARGE H 04/28/17 23:44 Labs- Entire Visit 04/28/17 04/28/17 04/28/17 20:35 20:44 20:44 WBC 13.1 H RBC 5.50 Hgb 16.2 Hct 48.4 MCV 88 MCH 29.5 MCHC 33.5 RDW 16.1 H Plt Count 271 Seg Neutrophils % 68.2 Lymphocytes % 19.0 Monocytes % 10.7 Eosinophils % 1.2 Basophils % 0.9 Absolute Neutrophils 8.9 H Absolute Lymphocytes 2.5 Absolute Monocytes 1.4 Absolute Eosinophils 0.2 Absolute Basophils 0.1 Sodium 140.5 Potassium 4.2 Chloride 101 Carbon Dioxide 25 Anion Gap 15 BUN 10 Creatinine 1.19 Est GFR ( Amer) > 60 Est GFR (Non-Af Amer) > 60 Glucose 100 Calcium 9.4 Total Bilirubin 0.6 Direct Bilirubin 0.3 Neonat Total Bilirubin Not Reportable Neonat Direct Bilirubin Not Reportable Neonat Indirect Bili Not Reportable AST 18 ALT 19 L Alkaline Phosphatase 74 Total Protein 7.4 Albumin 4.6 Urine Color YELLOW Urine Appearance CLEAR Urine pH 6.0 Ur Specific [place] 1.003 Urine Protein NEGATIVE Urine Glucose (UA) NEGATIVE Urine Ketones NEGATIVE Urine Blood LARGE H Urine Nitrite NEGATIVE Urine Bilirubin NEGATIVE Urine Urobilinogen NEGATIVE Ur Leukocyte Esterase NEGATIVE Urine WBC (Auto) 3 Urine RBC (Auto) 85 Urine Bacteria (Auto) TRACE Urine Mucus (Auto) RARE Urine Ascorbic Acid NEGATIVE - Diagnostic Test Radiology reviewed: Reports reviewed Discharge - Discharge Clinical Impression: Flank pain, Ureteral stone, Hx of essential hypertension Condition: Stable Disposition: HOME, SELF-CARE Instructions: Antinausea Medication ([facility]), Kidney Stone ([facility]), Oral Narcotic Medication ([facility]), Toradol Injection ([facility]) Additional Instructions: Return immediately for any new or worsening symptoms Followup with your primary care provider, call tomorrow to make a followup appointment Follow-up with a urologist in the next 3-5 days. If you are unable to get an appointment with the urologist for timely follow-up he may return to the ER for recheck. Prescriptions: Ondansetron HCl [Zofran 4 mg Tablet] 1 - 2 tab PO Q6 PRN #15 tablet PRN Reason: Oxycodone HCl/Acetaminophen [Percocet 5-325 mg Tablet] 1 tab PO ASDIR PRN #20 tablet PRN Reason: Forms: Elevated Blood Pressure, Return to Work Referrals: SULEMA RAYMOND MD [Primary Care Provider] - Follow up as needed [facility] [Provider Group] - Follow up as needed [facility] [Provider Group] - Follow up in 3-5 days TONY SCHROEDER MD [COMMUNITY BASED STAFF] - 04/30/17
--- NOTE | 2017-04-28 23:29 | RADIOLOGY REPORT (SQ) ---
EXAM DESCRIPTION: U/S SCROTUM W/DOPPLER COMPLETED DATE/TIME: 04/28/2017 11:20 pm REASON FOR STUDY: left test tenderness COMPARISON: 04/09/2016 TECHNIQUE: Static and realtime oquendo scale imaging of the scrotum and testes. Selected color Doppler and spectral images recorded to document blood flow. LIMITATIONS: None. FINDINGS: RIGHT: TESTICLE: Normal size. Normal echotexture. Normal blood flow. No mass. EPIDIDYMIS: Normal. HYDROCELE OR VARICOCELE: No. HERNIA OR EXTRA-TESTICULAR MASS: No. OTHER: No other significant finding. LEFT: TESTICLE: Normal size. Normal echotexture. Normal blood flow. No mass. EPIDIDYMIS: Normal. HYDROCELE OR VARICOCELE: No. HERNIA OR EXTRA-TESTICULAR MASS: No. OTHER: No other significant finding. IMPRESSION: Normal sonographic appearance of the scrotal contents. No findings to correlate to the patient's reported left testicular pain. TECHNICAL DOCUMENTATION: JOB ID: [id number] [employer]- All Rights Reserved
[2017-04-29 00:11] VITALS: BP 132/70
== END 2017-04-29 01:00 | disposition home or self-care (01) ==
LOC: ER 19:32
DX: N13.2 Hydronephrosis with renal and ureteral calculous obstruction (principal); I10 Essential (primary) hypertension; R11.2 Nausea with vomiting, unspecified; J44.9 Chronic obstructive pulmonary disease, unspecified; E11.9 Type 2 diabetes mellitus without complications
CPT/HCPCS: 96376; 99284; 96361; 96374; 96375; 36415; 85025; 80053; 81001; 76870; 93976; 76380; J1885; J2270 ×2; J2405; J7030

== ENCOUNTER 2019-06-10 08:22 | Day surgery (SDC) | payer OTHER ==
[2019-06-06 09:28] LABS: ABSOLUTE BASOPHILS # (AUTO) 0.1 10^3/uL (0.0-0.2); ABSOLUTE EOSINOPHILS # (AUTO) 0.4 10^3/uL (0.0-0.6); ABSOLUTE LYMPHOCYTES (AUTO) 3.7 10^3/uL (0.5-4.7); ABSOLUTE MONOCYTES (AUTO) 0.7 10^3/uL (0.1-1.4); ABSOLUTE NEUT (AUTO) 6.9 10^3/uL (1.7-8.2); EOSINOPHILS % (AUTO) 3.4 % (0-6); HEMATOCRIT 42.1 % (37.9-51.0); HEMOGLOBIN 14.4 g/dL (13.5-17.0); LYMPHOCYTES % (AUTO) 31.2 % (13-45); MEAN CORPUSCULAR HEMOGLOBIN 30.5 pg (27.0-33.4); MEAN CORPUSCULAR HGB CONC 34.1 g/dL (32.0-36.0); MEAN CORPUSCULAR VOLUME 89 fl (80-97); PLATELET COUNT 268 10^3/uL (150-450); RED BLOOD COUNT 4.71 10^6/uL (4.35-5.55); RED CELL DISTRIBUTION WIDTH 15.8 % (11.5-14.0); SEGMENTED NEUTROPHILS % (AUTO) 58.4 % (42-78); TOTAL CELLS COUNTED % (AUTO) 100 %; WHITE BLOOD COUNT 11.7 10^3/uL (4.0-10.5)
[2019-06-06 09:59] LABS: ANION GAP 11 (5-19); BLOOD UREA NITROGEN 12 mg/dL (7-20); CALCIUM 9.4 mg/dL (8.4-10.2); CARBON DIOXIDE 28 mmol/L (22-30); CHLORIDE 101 mmol/L (98-107); GLUCOSE 140 mg/dL (75-110); POTASSIUM 4.3 mmol/L (3.6-5.0)
--- NOTE | 2019-06-06 10:30 | RADIOLOGY REPORT (SQ) ---
EXAM DESCRIPTION: CHEST PA/LATERAL COMPLETED DATE/TIME: 06/06/2019 8:48 am REASON FOR STUDY: PRE-OP COMPARISON: None. EXAM PARAMETERS: NUMBER OF VIEWS: two views TECHNIQUE: Digital Frontal and Lateral radiographic views of the chest acquired. RADIATION DOSE: NA LIMITATIONS: none FINDINGS: LUNGS AND PLEURA: No opacities, masses or pneumothorax. No pleural effusion. MEDIASTINUM AND HILAR STRUCTURES: No masses or contour abnormalities. HEART AND VASCULAR STRUCTURES: Heart normal size. No evidence for failure. BONES: No acute findings. HARDWARE: None in the chest. Cervical fusion hardware. OTHER: No other significant finding. IMPRESSION: NO SIGNIFICANT RADIOGRAPHIC FINDING IN THE CHEST. TECHNICAL DOCUMENTATION: JOB ID: [id number] [employer]- All Rights Reserved Reading location - IP/workstation name: [email or web address]
--- NOTE | 2019-06-06 18:02 | EKG REPORT ---
SEVERITY:- ABNORMAL ECG - SINUS RHYTHM RBBB AND LAFB : Confirmed by: Ricardo Clarke MD 06-Jun-2019 18:02:00
[~2019-06-10 08:22] MED LIST: CEFAZOLIN SODIUM 2 GM in DEXTROSE 5%-WATER 100 ML IV PRN; LACTATED RINGERS 1000 ML IV PRN; LIDOCAINE 0.5% INJ-PF (5 MG/ML) 50 ML SDV SUBCUT PRN
[2019-06-10] MEDS ORDERED: FENTANYL CITRATE INJ/PF 100 MCG/2 ML AMPUL ONE (10:06)
[2019-06-10] MEDS ORDERED: ONDANSETRON HCL INJ/PF 4 MG/2 ML SDV ONE ×2 (10:07→14:24)
[2019-06-10] MEDS ORDERED: MIDAZOLAM 2 MG/2 ML INJ ONE (10:07)
[2019-06-10] MEDS ORDERED: PROPOFOL INJ 200 MG/20 ML VIAL IV ONE (10:07)
[2019-06-10] MEDS ORDERED: DEXAMETHASONE SOD PHOSPHATE INJ 4 MG/1 ML VIAL ONE (10:07)
[2019-06-10] MEDS ORDERED: MORPHINE SULFATE 10 MG/ML INJ ONE ×2 (10:07→14:24)
[2019-06-10] MEDS ORDERED: EPINEPHRINE INJ/PF 1 MG/1 ML AMPULE ONE (10:13)
[2019-06-10] MEDS ORDERED: DIPHENHYDRAMINE HCL 50 MG/ML VIAL IV PRN (11:28)
[2019-06-10] MEDS ORDERED: MEPERIDINE HCL/PF INJ 25 MG/1 ML DISP.SYRIN IV PRN (11:28)
[2019-06-10] MEDS ORDERED: FENTANYL CITRATE INJ/PF 100 MCG/2 ML AMPUL IV PRN ×3 (11:28)
[2019-06-10] MEDS ORDERED: ONDANSETRON HCL INJ/PF 4 MG/2 ML SDV IV PRN (11:28)
[2019-06-10] MEDS ORDERED: MORPHINE SULFATE 10 MG/ML INJ IV PRN (11:28)
[2019-06-10] MEDS ORDERED: PROMETHAZINE HCL INJ 25 MG/1 ML VIAL IV PRN ×2 (11:28)
[2019-06-10] MEDS ORDERED: OXYCODONE-ACETAMINOPHEN 5-325 MG TABLET PO PRN ×3 (11:28→13:29)
[2019-06-10] MEDS ORDERED: HYDROMORPHONE HCL INJ/PF 2 MG/ML AMPULE IV PRN (13:29)
--- NOTE | 2019-06-10 13:30 | Discharge Summary ---
Discharge Summary (SDC) - Discharge Final Diagnosis: Left shoulder SLAP tear, impingement syndrome, posterior labral tear Left carpal tunnel syndrome Date of Surgery: 06/10/19 Discharge Date: 06/10/19 Condition: Good Treatment or Instructions: Schedule Follow Up w/ Dr. Fadi Graff @ [facility] to be seen in 10-14 days or as scheduled [place]: [place]: [place]: May remove dressing on postop day #3, keep incision covered and dry. Cryocuff to shoulder May begin pendulum exercises along w/ hand, wrist and elbow range of motion 4x per day or as tolerated. May remove sling for hygiene purposes otherwise continue it at all times. Stool softener of choice when on pain medication. USE OF [id number] IBUPROFEN: Ibuprofen (Advil, Nuprin, Medipren, Motrin IB) is a medication for fever and pain control. In addition, it has anti- inflammatory effects which may be beneficial, especially in the treatment of injuries. It's best to take ibuprofen with food. Persons with ulcer disease or allergy to aspirin should notify their physician of this before taking ibuprofen. Ibuprofen can be given every four to six hours, for a total of four doses daily. Age Pain or fever dose Antiinflammatory dose 6-8 yr 200 mg (1 tab) 200 mg (1 tab) 9-11 yr 200 mg (1 tab) 200-400 mg (1-2 tab) 11-14 yr 200-400 mg (1-2 tab) 400 mg (2 tab) 15-adult 400 mg (2 tab) 600 mg (3 tab) ORAL NARCOTIC MEDICATION: You have been given a prescription for pain control. This medication is a narcotic. It's best taken with food, as nausea can result if taken on an empty stomach. Don't operate machinery or drive within six hours of taking this medication. Do not combine this medicine with alcohol, or with any medication which can cause sedation (such as cold tablets or sleeping pills) unless you get permission from the physician. Narcotics tend to cause constipation. If possible, drink plenty of fluids and eat a diet high in fiber and fruits. Please be aware that prescription narcotics also have the potential for abuse. People become addicted to these medications because of the general sense of wellbeing that they induce. This feeling along with a significant reduction in tension, anxiety, and aggression provides a stimulating seductive quality to these drugs. Once your pain is under control, we encourage you to discard your unused narcotics. Prescriptions: Ketorolac Tromethamine [Toradol 10 mg Tablet] 10 mg PO Q8HP PRN #12 tablet PRN Reason: Oxycodone HCl/Acetaminophen [Percocet 7.5-325 mg Tablet] 1 each PO Q6 PRN #25 t ablet PRN Reason: [facility]errals: [facility] [[facility]] - Discharge Diet: As Tolerated Respiratory Treatments at Home: Deep Breathing/Coughing, Incentive Spirometer
[2019-06-10] MEDS ORDERED: SUCCINYLCHOLINE CHLORIDE INJ 200 MG/10 ML VIAL ONE (13:36)
[2019-06-10] MEDS ORDERED: VECURONIUM BROMIDE INJ 10 MG VIAL IV ONE (13:36)
[2019-06-10] MEDS ORDERED: PHENYLEPHRINE HCL INJ/PF 10 MG/1 ML SDV ONE (13:36)
--- NOTE | 2019-06-10 13:37 | Operative Report ---
Operative Report DATE OF SURGERY: 06/10/19 PREOPERATIVE DIAGNOSIS: Left shoulder impingement syndrome, posterior labral te ar, SLAP tear. Left carpal tunnel syndrome POSTOPERATIVE DIAGNOSIS: Same OPERATION: 1. Left shoulder arthroscopy with subacromial decompression, acr omioplasty,. 2. Left subpectoralis biceps tenodesis. 3. Left Posterior labral repair. 4. Left endoscopic carpal tunnel release SURGEON: FLAKITO BLEVINS ANESTHESIA: GA COMPLICATIONS: None ESTIMATED BLOOD LOSS: Minimal PROCEDURE: Indication for above procedure: 43-year-old male with longstanding history of left shoulder discomfort. Patient attempted to remeasure including physical therapy and multiple injections without resolution of his symptoms MRI was then performed which demonstrated SLAP tear with possible posterior labral involvement with para labral cyst, AC joint arthrosis at that point we discussed treatment options and decision was made to proceed with operative intervention. Furthermore patient had findings of numbness and tingling throughout his left upper extremity consistent with carpal tunnel syndrome decision was made to then proceed with carpal tunnel release after failed conservative management including bracing. Procedure In Detail: Patient was seen and evaluated in the preoperative holding area. The LEFT upper extremity was initialized and marked. Patient received 2g of Ancef IV for bacterial prophylaxis. Patient was taken back to the operative room where transferred to the operative table and placed under general anesthesia. Once they were adequately anesthetized patient placed in the beachchair position. Cervical spine was placed in neutral position all bony prominences were padded including nonoperative upper extremity and bilateral lower extremity. A surgical team debriefing was performed ensuring all instrumentation was available, the surgical procedure was discussed with possible concerns reviewed. The upper extremity was prepped with ChloraPrep draped in a sterile fashion. A timeout was done identifying correct patient, procedure and extremity everyone in attendance agree with this and verbalized no concerns. Posterior portal was established arthroscope was introduced into the glenohumeral space. Via angulation anterior portal was established. Diagnostic arthroscopy demonstrated full-thickness SLAP tear with extension into the posterior labrum around the 4 o'clock position. This was confirmed with a probe that it peeled off posteriorly and superiorly. Given patient's age decision was made to proceed with biceps tenotomy to allow for later tenodesis. Remaining superior labrum was debrided. Subscapularis and rotator cuff remained intact. Arthroscope was then placed via the anterior portal and accessory posterior lateral portal was established via triangulation to confirm adequate trajectory for posterior labral repair. Threaded cannula was placed through the portal. The arthritic changes of the glenoid face were identified and chondroplasty performed. The insertion of the posterior labrum was debrided down to cancellus bone with a rasp and shaver. A Arthrex suture lasso was then placed obtaining fixation of the posterior labrum this was then shuttled out the posterior portal and a FiberWire suture was shuttled utilizing a locking type stitch. The lateral portion of the glenoid was then drilled and suture fed through a push lock anchor adequately securing the labrum. With a similar mechanism further posterior labrum was fixated to the posterior labrum at the 3 o'clock position. Arthroscopic probe was then inserted to ensure adequate fixation. Given patient's age and amount of degenerative changes special care was focused on avoiding undue tension. At completion there was full range of motion with no gapping of the labral Attention then turned to subacromial space. Arthroscope was introduced into the subacromial space. Via triangulation lateral portal was established subacromial decompression was performed. Coracoacromial ligament was released but not excised anterior acromial spur was identified and acromioplasty performed with arthroscopic bur. There is minimal impingement or degeneration along the distal clavicle thus distal clavicle excision was not performed. Rotator cuff was identified and there is no evidence of thinning or tear. Biceps tenodesis was then performed. Longitudinal skin incision was made along the inferior third of the pectoralis major. Blunt dissection was performed identifying the inferior border of the pectoralis major. Any peripheral vasculature was carefully coagulated. I then identified the tenotomized long head of the biceps which was retrieved and brought out the wound. The tendon was then secured 2 centimeters distal to the musculotendinous junction with a #2 fiber loop and the remaining diseased portion of the biceps was excised. The Arthrex biceps tenodesis button was then secured to my biceps tendon. Under direct visualization I then cleared an area along the anterior aspect of the humerus and drilled unicortically. The button was then placed into the unicortical hole and the biceps tendon was shuttled to the anterior cortex of the humerus. I then checked stability of the button confirming maximal fixation. Utilizing the free needle one limb of the remaining FiberWire was secured to the biceps providing further fixation. The elbow was then placed through range of motion to ensure appropriate tension of the biceps with flexion and extension. The wound was then copiously irrigated with normal saline. Any peripheral vasculature was carefully coagulated with Bovie cautery. Skin was closed a running subcuticular 3-0 Monocryl suture reinforced with Dermabond and Steri-Strips. Portal holes were closed with interrupted 3-0 nylon suture. 30 cc of 0.5% bupivacaine without epinephrine was injected for postoperative pain control. Sterile tourniquet was placed around the forearm. Extremity was then exsanguinated and tourniquet inflated to 250 mmHg. A transverse skin incision was made just proximal to the wrist flexion crease ulnar to the palmaris longus. Blunt dissection was performed down to the palmaris longus tendon which was retracted radially. Deep to the palmaris longus tendon was the volar carpal ligament this was incised identifying the median nerve deep. With the use of a [place] elevator any soft tissue/synovium was freed from the undersurface of the transverse carpal ligament. The hook of hamate was identified ulnarly. The ConMed cannulas were then introduced beginning with #1 progressing to a #3 gently dilating the carpal canal. I then introduced the scope within the cannula and identified transverse carpal ligament ensuring the median nerve was not visualized within the cannula. I triangulated distally with a 25-gauge needle identifying the distal aspect of the transverse carpal ligament, to ensure protection of the superficial palmar arch. The arthroscopic knife was used to incise the transverse carpal ligament under direct visualization with the arthroscopic camera. Any excess transverse fibers that remained after the first past were carefully released with a repeat pass. The median nerve was then directly visualized radially without disruption. Once this was completed I placed the #3 dilator and assured I got complete release of the transverse carpal ligament without residual compression. The median nerve was directly visualized and free of any overlying compression. I then turned my attention to release of the volar antebrachial fascia proximally. Once again a Kane was used to open the wound and I proceeded with cannula #1 to #3. The arthroscope was introduced into the cannula and under direct visualization the volar antebrachial fascia was released. Once this was complete I copiusly irrigated the wound with normal saline. The skin incision was closed with 4-0 Monocryl subcutaneous and a running subcuticular 4-0 Monocryl. This was reinforced with Dermabond and Steri-Strips. Sterile, 4 x 4's and a Jamaal bandage was placed loosely. Sponge counts, instrument counts and needle counts were correct. The was no intraoperative complications patient tolerated the procedure well and was stable to PACU. Postoperative plan patient follow the office in 2 weeks at which point we will proceed with wound check. Patient will begin physical therapy 4 weeks postoperatively. We will begin pendulum exercises immediately.
[2019-06-10] MEDS ORDERED: BUPIVACAINE HCL 0.5 % INJ/PF 30 ML SDV ONE (14:14)
[2019-06-10] MEDS ORDERED: KETOROLAC TROMETHAMINE INJ/PF 30 MG/1 ML SDV ONE (14:23)
[2019-06-10] MEDS ORDERED: ACETAMINOPHEN 1,000 MG/100 ML RTUPB IV ONE (14:24)
[2019-06-10] MEDS ORDERED: OXYCODONE-ACETAMINOPHEN 5-325 MG TABLET ONE (14:25)
[2019-06-10] MEDS ORDERED: HYDROMORPHONE HCL INJ/PF 2 MG/ML AMPULE ONE (15:23)
[2019-06-10 17:57] VITALS: BP 145/90
== END 2019-06-10 16:18 | disposition home or self-care (01) ==
LOC: OROUT 08:22
PROVIDERS: ATTEND Orthopaedic Surgery
DX: M75.42 Impingement syndrome of left shoulder (principal); G56.02 Carpal tunnel syndrome, left upper limb; S43.432A Superior glenoid labrum lesion of left shoulder, initial encounter; X58.XXXA Exposure to other specified factors, initial encounter; M75.22 Bicipital tendinitis, left shoulder; M75.52 Bursitis of left shoulder; M25.512 Pain in left shoulder; Z79.899 Other long term (current) drug therapy; Z79.51 Long term (current) use of inhaled steroids; J44.9 Chronic obstructive pulmonary disease, unspecified; I10 Essential (primary) hypertension; F17.210 Nicotine dependence, cigarettes, uncomplicated; Z88.2 Allergy status to sulfonamides; E11.9 Type 2 diabetes mellitus without complications
CPT/HCPCS: 93005; 36415 ×2; 82962; 84132; 85025; 80048; 71046; 93010; 01630; 29822; 23430; 29807; 29848; C1713 ×2; J2250; J3490 ×2; J0690; J1100; J0171; J3010; J1885; J2270; J1170; J2370; J0330; J2405; J7060; J2704; J0131; 1630

== ENCOUNTER 2019-10-28 07:00 | Day surgery (SDC) | payer OTHER ==
[2019-10-23 10:16] LABS: HEMOGLOBIN 15.3 g/dL (13.5-17.0); MEAN CORPUSCULAR HEMOGLOBIN 29.1 pg (27.0-33.4); MEAN CORPUSCULAR HGB CONC 33.2 g/dL (32.0-36.0); MEAN CORPUSCULAR VOLUME 88 fl (80-97); PLATELET COUNT 256 10^3/uL (150-450); RED BLOOD COUNT 5.25 10^6/uL (4.35-5.55); RED CELL DISTRIBUTION WIDTH 15.5 % (11.5-14.0); WHITE BLOOD COUNT 14.4 10^3/uL (4.0-10.5)
[2019-10-23 10:23] LABS: APPEARANCE,URINE CLEAR; BILIRUBIN,URINE NEGATIVE (NEGATIVE); COLOR,URINE YELLOW; GLUCOSE, URINE NEGATIVE (NEGATIVE); KETONES,URINE NEGATIVE (NEGATIVE); LEUKOCYTE ESTERASE,URINE NEGATIVE (NEGATIVE); NITRITE,URINE NEGATIVE (NEGATIVE); PROTEIN,URINE NEGATIVE (NEGATIVE); URINE SPECIFIC GRAVITY 1.013; UROBILINOGEN,URINE NEGATIVE mg/dL (<2.0)
[2019-10-23 10:40] LABS: ANION GAP 9 (5-19); BLOOD UREA NITROGEN 10 mg/dL (7-20); CALCIUM 9.5 mg/dL (8.4-10.2); CARBON DIOXIDE 28 mmol/L (22-30); CHLORIDE 103 mmol/L (98-107); GLUCOSE 105 mg/dL (75-110); POTASSIUM 4.7 mmol/L (3.6-5.0)
--- NOTE | 2019-10-23 11:21 | RADIOLOGY REPORT (SQ) ---
EXAM DESCRIPTION: CHEST PA/LATERAL IMAGES COMPLETED DATE/TIME: 10/23/2019 10:24 am REASON FOR STUDY: PRE OP COMPARISON: None. EXAM PARAMETERS: NUMBER OF VIEWS: two views TECHNIQUE: Digital Frontal and Lateral radiographic views of the chest acquired. RADIATION DOSE: NA LIMITATIONS: none FINDINGS: LUNGS AND PLEURA: No opacities, masses or pneumothorax. No pleural effusion. MEDIASTINUM AND HILAR STRUCTURES: No masses or contour abnormalities. HEART AND VASCULAR STRUCTURES: Heart normal size. No evidence for failure. BONES: No acute findings. HARDWARE: None in the chest. OTHER: No other significant finding. IMPRESSION: NO SIGNIFICANT RADIOGRAPHIC FINDING IN THE CHEST. TECHNICAL DOCUMENTATION: JOB ID: [id number] 2010 [email or web address]- All Rights Reserved Reading location - IP/workstation name: [email or web address]
--- NOTE | 2019-10-24 01:06 | EKG REPORT ---
SEVERITY:- ABNORMAL ECG - SINUS RHYTHM RBBB AND LAFB : Confirmed by: Perry Onofre 24-Oct-2019 01:05:34
[~2019-10-28 07:00] MED LIST changes: +CEFAZOLIN 2 GM/D5W RTU 2 GM/50 ML RTUPB IV PRN; -CEFAZOLIN SODIUM 2 GM in DEXTROSE 5%-WATER 100 ML IV PRN; +FENTANYL CITRATE INJ/PF 100 MCG/2 ML AMPUL ONE; +MIDAZOLAM 2 MG/2 ML INJ ONE; +ONDANSETRON HCL INJ/PF 4 MG/2 ML SDV ONE; +PROPOFOL INJ 200 MG/20 ML VIAL IV ONE
[2019-10-28] MEDS ORDERED: CEFAZOLIN 2 GM/D5W RTU 2 GM/50 ML RTUPB IV ONE (07:05)
[2019-10-28] MEDS ORDERED: LIDOCAINE 1% INJ-PF (10 MG/ML) 30 ML SDV ONE (09:07)
--- NOTE | 2019-10-28 09:49 | Discharge Summary ---
Discharge Summary (SDC) - Discharge Final Diagnosis: Right carpal tunnel syndrome Date of Surgery: 10/28/19 Condition: Good Treatment or Instructions: Schedule Follow Up w/ Dr. Fadi Graff @ [facility] for Surgery to be seen in 10-14 days or as scheduled [place]: [place]: [place]: May remove dressing on postop day #3, keep incision covered and dry. Ice and elevate May begin finger range of motion attempting to make full fist. Stool softener of choice when on pain medication. USE OF [id number] IBUPROFEN: Ibuprofen (Advil, Nuprin, Medipren, Motrin IB) is a medication for fever and pain control. In addition, it has anti- inflammatory effects which may be beneficial, especially in the treatment of injuries. It's best to take ibuprofen with food. Persons with ulcer disease or allergy to aspirin should notify their physician of this before taking ibuprofen. Ibuprofen can be given every four to six hours, for a total of four doses daily. Age Pain or fever dose Antiinflammatory dose 6-8 yr 200 mg (1 tab) 200 mg (1 tab) 9-11 yr 200 mg (1 tab) 200-400 mg (1-2 tab) 11-14 yr 200-400 mg (1-2 tab) 400 mg (2 tab) 15-adult 400 mg (2 tab) 600 mg (3 tab) ORAL NARCOTIC MEDICATION: You have been given a prescription for pain control. This medication is a narcotic. It's best taken with food, as nausea can result if taken on an empty stomach. Don't operate machinery or drive within six hours of taking this medication. Do not combine this medicine with alcohol, or with any medication which can cause sedation (such as cold tablets or sleeping pills) unless you get permission from the physician. Narcotics tend to cause constipation. If possible, drink plenty of fluids and eat a diet high in fiber and fruits. Please be aware that prescription narcotics also have the potential for abuse. People become addicted to these medications because of the general sense of wellbeing that they induce. This feeling along with a significant reduction in tension, anxiety, and aggression provides a stimulating seductive quality to these drugs. Once your pain is under control, we encourage you to discard your unused narcotics. Prescriptions: Hydrocodone/Acetaminophen [[place]ona 5-325 mg Tablet] 1 tab PO Q6 PRN #15 tablet PRN Reason: [facility] - Discharge Diet: As Tolerated Respiratory Treatments at Home: Deep Breathing/Coughing Discharge Activity: No Lifting Over 10 Pounds, No Lifting/Push/Pulling Report the Following to Your Physician Immediately: Fever over 101 Degrees, Unusual Bleeding, Redness, Swelling, Warmth, Increased Soreness
--- NOTE | 2019-10-28 09:49 | Operative Report ---
Operative Report DATE OF SURGERY: 10/28/19 PREOPERATIVE DIAGNOSIS: Right carpal tunnel syndrome POSTOPERATIVE DIAGNOSIS: Same OPERATION: Right endoscopic carpal tunnel release SURGEON: FLAKITO BLEVINS ANESTHESIA: LMAC COMPLICATIONS: None ESTIMATED BLOOD LOSS: Minimal PROCEDURE: Indication for above procedure: 44-year-old male with numbness and tingling bilaterally consistent with carpal tunnel syndrome. Patient had electrodiagnostic testing confirming advanced carpal tunnel syndrome. Patient underwent successful left endoscopic carpal tu nnel release with good results. But continued to have right-sided symptoms at that point decision was made to proceed with operative intervention. Procedure In Detail: Patient was seen and evaluated in the preoperative holding area. The RIGHT upper extremity was initialized and marked. Patient received Ancef IV for bacterial prophylaxis. Patient was taken back to the operative room where tra nsferred operative table. Patient was then placed under MAC anesthesia. Once adequately anesthetized, a nonsterile tourniquet was placed on the upper extremity. A surgical team debriefing was performed ensuring all instrumentation was available, the surgical procedure was discussed with possible concerns reviewed. Skin was prepped with alcohol and 10cc of 1% lidocaine without epinephrine was injected locally and w/in carpal canal. The upper extremity was prepped with chlorhexidine and alcohol and draped in a sterile fashion. A timeout was done identifying correct patient, procedure and extremity everyone in attendance agree with this and verbalized no concerns.The extremity was then exsanguinated the tourniquet was inflated to 250 mmHg. A transverse skin incision was made just proximal to the wrist flexion crease ulnar to the palmaris longus. Blunt dissection was performed down to the palmaris longus tendon which was retracted radially. Deep to the palmaris longus tendon was the volar carpal ligament this was incised identifying the median nerve deep. With the use of a [place] elevator any soft tissue/synovium was freed from the undersurface of the transverse carpal ligament. The hook of hamate was identified ulnarly. The ConMed cannulas were then introduced beginning with #1 progressing to a #3 gently dilating the carpal canal. I then introduced the scope within the cannula and identified transverse carpal ligament ensuring the median nerve was not visualized within the cannula. I triangulated distally with a 25-gauge needle identifying the distal aspect of the transverse carpal ligament, to ensure protection of the superficial palmar arch. The arthroscopic knife was used to incise the transverse carpal ligament under direct visualization with the arthroscopic camera. Any excess transverse fibers that remained after the first past were carefully released with a repeat pass. The median nerve was then directly visualized radially without disruption. Once this was completed I placed the #3 dilator and assured I got complete release of the transverse carpal ligament without residual compression. The median nerve was directly visualized and free of any overlying compression. I then turned my attention to release of the volar antebrachial fascia proximally. Once again a [place] was used to open the wound and I proceeded with cannula #1 to #3. The arthroscope was introduced into the cannula and under direct visualization the volar antebrachial fascia was released. Once this was complete I copiusly irrigated the wound with normal saline. The skin incision was closed with 4-0 Monocryl subcutaneous and a running subcuticular 4-0 Monocryl. This was reinforced with Dermabond and Steri-Strips. Sterile, 4 x 4's and a Jamaal bandage was placed loosely. Sponge counts, instrument counts and needle counts were correct. The was no intraoperative complications patient tolerated the procedure well and was stable to PACU.
[2019-10-28] MEDS ORDERED: OXYCODONE-ACETAMINOPHEN 5-325 MG TABLET PO PRN ×2 (10:05)
[2019-10-28] MEDS ORDERED: MEPERIDINE HCL/PF INJ 25 MG/1 ML DISP.SYRIN IV PRN (10:05)
[2019-10-28] MEDS ORDERED: FENTANYL CITRATE INJ/PF 100 MCG/2 ML AMPUL IV PRN ×3 (10:05)
[2019-10-28] MEDS ORDERED: DIPHENHYDRAMINE HCL 50 MG/ML VIAL IV PRN (10:05)
[2019-10-28] MEDS ORDERED: MORPHINE SULFATE 10 MG/ML INJ IV PRN (10:05)
[2019-10-28] MEDS ORDERED: PROMETHAZINE HCL INJ 25 MG/1 ML VIAL IV PRN ×2 (10:05)
[2019-10-28] MEDS ORDERED: MORPHINE SULFATE 10 MG/ML INJ ONE (10:09)
[2019-10-28] MEDS ORDERED: OXYCODONE-ACETAMINOPHEN 5-325 MG TABLET ONE (10:31)
[2019-10-28 12:03] VITALS: BP 140/90
== END 2019-10-28 11:45 | disposition home or self-care (01) ==
LOC: OROUT 07:00
PROVIDERS: ATTEND Orthopaedic Surgery
DX: G56.01 Carpal tunnel syndrome, right upper limb (principal); J44.9 Chronic obstructive pulmonary disease, unspecified; Z88.2 Allergy status to sulfonamides; G47.33 Obstructive sleep apnea (adult) (pediatric); Z79.899 Other long term (current) drug therapy; I10 Essential (primary) hypertension; F17.210 Nicotine dependence, cigarettes, uncomplicated; Z03.818 Encounter for observation for suspected exposure to other biological agents ruled out; I25.2 Old myocardial infarction; I45.10 Unspecified right bundle-branch block
CPT/HCPCS: 93005; 36415; 82962; 85027; 87635; 80048; 81001; 71046; 93010; 29848; J2250; J3010; J3490; J2270; J2405; J2704; J0690; C9803